=== PATIENT | male | born 1990 | race Caucasian/White ===

== ENCOUNTER 2021-12-30 21:24 | Emergency (ER) | payer MEDICAID, SELFPAY ==
[2021-12-30 21:25] VITALS: BP 146/80; PULSE 83; RESP 14; TEMP 36.8; O2SAT 95; BMI 27.3
--- NOTE | 2021-12-30 21:46 | EDS_ITS ---
HPI History of Present Illness Chief Complaint: General Illness Narrative Narrative: Patient presents with multiple somatic complaints, mainly viral syndrome type complaints that has had for the last 2 days. He states his symptoms began as a sore throat, with subjective fevers. He has an occasional cough. He also endorses myalgias/body aches. He states he has been taking Robitussin with mild relief of his sore throat which is improving. Today he experienced nausea and vomiting. He states he feels weak, and tired. He did not receive any COVID immunizations. He states worst part of his illness is a sore throat and body aches along with fatigue. He denies any significant past medical history. No sick contacts. PFSH [facility] Home Medications NK 12/30/21 [History Last Taken Unknown] Allergy/AdvReac Type Severity Reaction Status Date / Time piperacillin [From Zosyn] AdvReac Rash Verified 12/30/21 21:25 tazobactam [From Zosyn] AdvReac Rash Verified 12/30/21 21:25 Surgical History History of appendectomy Social History Smoking Status: Current every day smoker tobacco type: cigarettes ROS ROS ED ROS Narrative Constitutional: Subjective fever, occasional chills. HEENT: Positive sore throat. No neck pain. No loss of vision. Nasal congestion alternating with rhinorrhea. Cardiovascular: No chest pain. No palpitations. No pedal edema. Respiratory: Occasional cough, no shortness of breath. Abdominal: No abdominal pain. No nausea. No vomiting. Genitourinary: No dysuria. No hematuria. Musculoskeletal: Positive, diffuse myalgias. No arthralgias. Neurologic: No headaches. No dizziness. No lightheadedness. Skin: No rash. No change in color. Psychiatric: No depression. No anxiety. EXAM Physical Exam Narrative Exam Narrative: Afebrile. Vital signs noted. HEENT: Normocephalic. Atraumatic. PERRL, EOMI. Neck soft and supple. No point tenderness or step off. Positive nasal congestion. Airway patent. No drooling or trismus. Mild pharyngeal erythema. No tonsillar exudate. No meningismus. Cardiovascular: Regular rate and rhythm. No murmurs, rubs, or gallops appreciated. Respiratory: No tachypnea. Lungs clear to auscultation bilaterally. Gastrointestinal: Abdomen soft, nontender, with normoactive bowel sounds. No rebound or guarding. Neurological: Awake. Alert. Nonfocal, nonlateralizing. Skin: No rash. Normal color. No pallor. Musculoskeletal: No pedal edema. Full range of motion extremities. Const Vital Signs: 12/30/21 21:25 12/30/21 21:30 Temperature 98.2 F Temperature Source Temporal Pulse Rate 83 Respiratory Rate 14 Respiratory Effort Normal Non-Labored Respiratory Pattern Normal Blood Pressure 146/80 H Blood Pressure Mean 102 Pulse Ox 95 Oxygen Delivery Method Room Air MDM MDM MDM Narrative Medical decision making narrative: Patient was swabbed for Covid and influenza. He is negative for both. At this point in time, the treatment will be symptomatic. He will take [id number] medications as needed. I do not feel antibiotics are indicated. I asked him if he wanted anything for nausea and he declined. I also asked him if he needs note for work tomorrow and he also declined. I feel he can be discharged safely home with follow-up. Return instructions to the emergency department were reviewed. Disposition is discharged home in stable condition. Lab Data Attestation: I reviewed the patient's lab results. Discharge Plan Triage Chief Complaint: General Illness ED Provider: Kelvin Tom Dx/Rx/DC Orders Clinical Impression: URI (upper respiratory infection), Viral syndrome Instructions: ED Viral Syndrome (Adult), ED URI, Viral, No Abx (Adult) Prescriptions: No Action NK RF: 0 Primary Care Provider: Care Physician,No Primary Referrals: Baylee Wise DO [STAFF PHYSICIAN] - As Needed Care Physician,No Primary [Primary Care Provider] - Disposition Disposition: Home, Self Care
[2021-12-30 23:01] VITALS: RESP 16
== END 2021-12-30 23:01 | disposition home or self-care (01) ==
PROVIDERS: Emergency Provider Emergency Medicine; Visit Provider Emergency Medicine
DX: J06.9 Acute upper respiratory infection, unspecified (principal); B34.9 Viral infection, unspecified; F17.210 Nicotine dependence, cigarettes, uncomplicated
CPT/HCPCS: 87428; 99283

== ENCOUNTER 2022-01-18 16:07 | Emergency (ER) | payer MEDICAID, SELFPAY ==
[2022-01-18 16:08] VITALS: BP 137/84; PULSE 80; RESP 15; TEMP 36.5; O2SAT 97; BMI 27.6
--- NOTE | 2022-01-18 16:16 | RAD_ITS ---
STUDY: XR Elbow Min 3 Views REASON FOR EXAM: Male, 31 years old. PAIN TECHNIQUE: XR Elbow Min 3 Views LEFT COMPARISON: None. FINDINGS: Normal visualized humerus, radius and ulna. Normal radiocapitellar and ulnotrochlear articulations. Anterior humeral line and radiocapitellar line are preserved. The soft tissue structures are unremarkable. RAD/Elbow min 3 Views IMPRESSION: There are no acute findings. Electronically Signed: Luis Marquez MD at 16:34 EDT ,
--- NOTE | 2022-01-18 16:16 | EX.ED.UPPERE ---
HPI History of Present Illness Chief Complaint: Upper Extremity Injury Informant: patient Narrative Narrative: Patient presents with left elbow pain. Earlier today he fell off the back of a truck and landed on the ground. He hit his elbow on gravel. He had an immediate pain at the elbow that shot down his arm distally. But then it seemed to be better when he got up. However he notes that every time he even touches the elbow slightly he gets pain that shoots down his arm. His range of motion is still good. This is his left arm and he is right-hand dominant. He denies any other injuries or areas of pain. On exam and review of systems I find that he has a slightly inflamed recent tattoo of the left hand. This has antibiotic ointment has been placed on it and is improving. This was not part of the injury today. PFSH PFSH Home Medications naproxen [Naprosyn] 500 mg PO BID PRN #20 tab 01/18/22 [Rx Last Taken Unknown] Allergy/AdvReac Type Severity Reaction Status Date / Time piperacillin [From Zosyn] AdvReac Rash Verified 01/18/22 16:10 tazobactam [From Zosyn] AdvReac Rash Verified 01/18/22 16:10 Surgical History History of appendectomy Social History Smoking Status: Current every day smoker tobacco type: cigarettes ROS ROS ED Constitutional Constitutional ED: Denies chills or fever(s) Cardiovascular Cardiovascular: Denies chest pain Respiratory/Chest Respiratory/Chest: Denies dyspnea Gastrointestinal Gastrointestinal: Denies nausea or vomiting Musculoskeletal Musculoskeletal: Reports other Details: Left elbow pain as in history of present illness. ; Denies neck pain Integumentary Reports other Details: Healing tattoo infection dorsum of left hand. ; Denies abscess or Abrasions Neurologic Neurologic: Reports other Details: Patient does not have routine paresthesias. However, if he bumps his elbow at all it does shoot pain down his arm. ; Denies paresthesias or weakness Hematologic/Lymphatic Hematologic/Lymphatic: Denies easy bleeding or easy bruising EXAM Physical Exam Const Vital Signs: 01/18/22 16:08 Temperature 97.7 F L Temperature Source Temporal Pulse Rate 80 Respiratory Rate 15 Blood Pressure 137/84 H Blood Pressure Mean 101 Pulse Ox 97 Oxygen Delivery Method Room Air Positive well nourished and well developed General Appearance ED: well developed and NAD HEENT normocephalic and atraumatic Neck supple Resp normal respiratory effort Extremity normal to inspection and full ROM Extremity Narrative: I see no contusion or abrasion on the left arm or elbow area. There is no effusion. Extension flexion and supination pronation is all intact. He does have some tenderness both at the olecranon and proximal radius. He does have some hyperesthesia with tapping on the ulnar nerve. There is no distal arm tenderness or proximal arm tenderness. He does have a slightly inflamed tattoo on the dorsum of the left hand but it does not look acutely infected. He states it is improving. Neuro no sensory deficits noted Sensorium / Orientation: alert Sensory Exam: No sensory level loss detected Motor Exam: strength 5/5 throughout Skin Skin Narrative: Tattoo changes as above. No other abrasions lacerations or contusions at this time MDM MDM MDM Narrative Medical decision making narrative: 3 view of the left elbow looked at by me shows no sign of acute fracture or dislocation. Olecranon and radial head both look normal. There is a very small anterior fat pad. Patient will be prescribed Naprosyn. I will not put the arm in a sling as I think this might promote more stiffness than benefit. He can use ice and rest. Discharge Plan Triage Chief Complaint: Upper Extremity Injury ED Provider: Onel Schwartz Dx/Rx/DC Orders Clinical Impression: Fall from slipping, Contusion of elbow, left Instructions: ED Contusion, Upper Extremity Prescriptions: New naproxen [Naprosyn] 500 mg tablet 500 mg PO BID PRN (Reason: pain) Qty: 20 RF: 0 Primary Care Provider: Care Physician,No Primary Referrals: Eliseo Rao MD [STAFF PHYSICIAN] - 3-5 Days if not improving Care Physician,No Primary [Primary Care Provider] - Disposition Disposition: Home, Self Care
[2022-01-18] MEDS: Naproxen 250 MG Tablet 500 MG PO (17:08)
== END 2022-01-18 17:10 | disposition home or self-care (01) ==
LOC: ED 16:44
PROVIDERS: Emergency Provider Emergency Medicine; Visit Provider Emergency Medicine
DX: S50.02XA Contusion of left elbow, initial encounter (principal); W01.198A Fall on same level from slipping, tripping and stumbling with subsequent striking against other object, initial encounter; Y92.812 Truck as the place of occurrence of the external cause; F17.210 Nicotine dependence, cigarettes, uncomplicated
CPT/HCPCS: 73080; 99283

== ENCOUNTER 2022-04-08 00:45 | Emergency (ER) | payer MEDICAID, SELFPAY ==
[2022-04-08 00:46] VITALS: BP 150/86; PULSE 77; RESP 16; TEMP 36.3; O2SAT 99; BMI 28.3
--- NOTE | 2022-04-08 00:55 | RAD_ITS ---
STUDY: TOES OF THE RIGHT FOOT OF 0057 HOURS ON 04/08/2022 REASON FOR EXAM: 31-year-old male with trauma to toes of right foot. TECHNIQUE: 3 view(s) of the toe were obtained. COMPARISON: None. FINDINGS: There are no fractures or dislocations. There are no arthritic or degenerative changes. The joint spaces have a normal appearance. There are mild hammertoe deformities of the second through fifth toes. The surrounding soft tissues are normal. RAD/Toe(s) Min 2 Views IMPRESSION: 1. Normal examination right toes. 2. No fractures or dislocations. 3. No arthritic or degenerative changes. Normal joint spaces. 4. Mild hammertoe deformities second through fifth toes. 5. Normal surrounding soft tissues. Electronically Signed: Declan Seaman MD at 1:52 EDT ,
--- NOTE | 2022-04-08 01:24 | ED.VIS.LOWEX ---
HPI History of Present Illness Chief Complaint: Lower Extremity Injury Informant: patient Narrative Narrative: Patient presenting with great toe pain. Patient had a pair of slides on jumped off a lawn more and his backpack was caught on the lawn more he spun and kicked something. He notes pain at the base of the great toe. Denies any other injuries PFSH PFSH no medical history Home Medications hydrocodone-acetaminophen 5-325mg 5mg-325mg 1 tab PO Q6H PRN PRN Pain 3 days #10 TABLETS 04/08/22 [Rx Last Taken Unknown] Allergy/AdvReac Type Severity Reaction Status Date / Time piperacillin [From Zosyn] AdvReac Rash Verified 04/08/22 00:46 tazobactam [From Zosyn] AdvReac Rash Verified 04/08/22 00:46 Surgical History History of appendectomy Social History (Updated 04/08/22 @ 01:[address] Nikko Vieira DO) current gender identity: male Smoking Status: Current every day smoker tobacco type: cigarettes substance use type: does not use ROS ROS ED Constitutional Constitutional ED: Denies chills or weight loss Eyes Eyes: Denies change in vision or diplopia ENT ENT ED: Denies ear pain, rhinorrhea or sore throat Cardiovascular Cardiovascular: Denies chest pain, orthopnea, palpitations or racing heartbeat Respiratory/Chest Respiratory/Chest: Denies cough, dyspnea or orthopnea Gastrointestinal Gastrointestinal: Denies abdominal pain, diarrhea, nausea or vomiting Genitourinary Genitourinary ED: Denies dysuria, hematuria or urinary frequency Musculoskeletal Musculoskeletal: Reports other Details: See history of present illness ; Denies arthralgias or myalgias Integumentary Denies abscess or rash Neurologic Neurologic: Denies headache(s) or weakness Psychiatric Psychiatric: Denies anxiety, depression, suicidal ideation or suicidal thoughts Endocrine Endocrinology: Denies polydipsia, polyphagia or polyuria Allergic/Immunologic Allergic/Immunologic ED: Denies mouth swelling, tongue swelling or urticaria EXAM Physical Exam Const Vital Signs: 04/08/22 00:46 Temperature 97.3 F L Temperature Source Temporal Pulse Rate 77 Respiratory Rate 16 Blood Pressure 150/86 H Blood Pressure Mean 107 Pulse Ox 99 Oxygen Delivery Method Room Air Positive well nourished and well developed General Appearance ED: well developed HEENT Reports normocephalic, head/scalp atraumatic and moist mucous membranes Eyes PERRL and EOMs intact bilaterally Neck no lymphadenopathy, supple and no JVD Resp normal respiratory effort and clear to auscultation bilaterally Cardio regular rate, regular rhythm and no murmurs GI normal to inspection, nondistended, normoactive bowel sounds and non-tender Palpation: soft Back/Spine no CVA tenderness and normal ROM Extremity Extremity Narrative: Tender palpation over the medial aspect at the MTP joint of the right great toe General Extremety ED: Negative for edema General Extremity: Negative for edema Neuro oriented x3 and CN's II-XII intact bilaterally Sensorium / Orientation: alert Motor Exam: strength 5/5 throughout Psych mental status grossly normal Mood & Affect: Negative for depressed or tearful Skin no rashes or lesions noted and no wounds MDM MDM MDM Narrative Medical decision making narrative: My interpretation of the plain films of the great toe is no acute fracture. Patient be placed in a postoperative shoe. He can have pain medication rest and ice. Return if worsening or concerns Discharge Plan Triage Chief Complaint: Lower Extremity Injury ED Provider: Nikko Vieira Dx/Rx/DC Orders Clinical Impression: Contusion of toe Instructions: ED Foot Contusion Prescriptions: New hydrocodone-acetaminophen [hydrocodone-acetaminophen] 5-325 mg tablet 1 tab PO Q6H PRN PRN (Reason: Pain) 3 Days Qty: 10 0RF Primary Care Provider: Care Physician,No Primary Referrals: Care Physician,No Primary [Primary Care Provider] - Disposition Disposition: Home, Self Care
[2022-04-08] MEDS: HYDROcodone Bitartrate/Apap 5/325 Tablet PO (01:25)
== END 2022-04-08 01:28 | disposition home or self-care (01) ==
PROVIDERS: Emergency Provider Emergency Medicine; Visit Provider Emergency Medicine
DX: S90.111A Contusion of right great toe without damage to nail, initial encounter (principal); W22.09XA Striking against other stationary object, initial encounter; Y93.89 Activity, other specified; F17.210 Nicotine dependence, cigarettes, uncomplicated
CPT/HCPCS: 73660; 99283

== ENCOUNTER 2022-06-10 22:13 | Emergency (ER) | payer MEDICAID, SELFPAY ==
[2022-06-10 22:13] VITALS: BP 150/89; PULSE 96; RESP 16; TEMP 36.6; O2SAT 100; BMI 29.1
--- NOTE | 2022-06-10 23:19 | EX.ED.VIS.UR ---
HPI HPI - URI History of Present Illness Chief Complaint: Ear Problem Informant: patient Onset/Context/Timing Onset: Today Context: Gradual Onset Timing: Continuous Quality: ache Location: L ear Current Severity: Moderate Maximum Severity: Moderate Worsened by: - (nothing) Narrative Narrative: Patient states he had a sore throat yesterday but gone today, then he got out of the shower and his left ear was clogged like it needed to pop, as well as his right but when he held his nose and blew positive pressure to the right one opened up and is fine and the left one is still really uncomfortable. He denies any fevers, chills, systemic symptoms. No cough. ROS ROS ED Constitutional Constitutional ED: Denies chills or fever(s) ENT ENT ED: Reports ear pain left; Denies rhinorrhea or sore throat Cardiovascular Cardiovascular: Denies chest pain or palpitations Respiratory/Chest Respiratory/Chest: Denies cough or dyspnea Gastrointestinal Gastrointestinal: Denies abdominal pain, diarrhea, nausea or vomiting Genitourinary Genitourinary ED: Denies dysuria or hematuria Musculoskeletal Musculoskeletal: Denies myalgias or neck pain Integumentary Denies abscess or rash Neurologic Neurologic: Denies headache(s), paresthesias or weakness Psychiatric Psychiatric: Denies depression or suicidal thoughts Endocrine Endocrinology: Denies polydipsia or polyuria PFSH PFSH Medical History no medical history no medical history Home Medications hydrocodone-acetaminophen 5-325mg 5mg-325mg 1 tab PO Q6H PRN PRN Pain 3 days #10 TABLETS 04/08/22 [Rx Last Taken Unknown] azithromycin 250 mg tablet 250 mg PO QHS #4 TABLETS 06/10/22 [Rx Last Taken Unknown] Allergy/AdvReac Type Severity Reaction Status Date / Time piperacillin [From Zosyn] AdvReac Rash Verified 06/10/22 22:13 tazobactam [From Zosyn] AdvReac Rash Verified 06/10/22 22:13 Surgical History (Updated 06/10/22 @ 23:[address] Harry Tabares MD) History of appendectomy Hx of tympanostomy tubes Social History Smoking Status: Current every day smoker tobacco type: cigarettes substance use type: does not use EXAM Physical Exam Const Vital Signs: 06/10/22 22:13 Temperature 97.8 F Temperature Source Temporal Pulse Rate 96 Respiratory Rate 16 Blood Pressure 150/89 H Blood Pressure Mean 109 Pulse Ox 100 Oxygen Delivery Method Room Air Positive well nourished and well developed General Appearance ED: well developed and NAD HEENT Reports moist mucous membranes HEENT Narrative: Right TM and EAC normal. Left EAC unremarkable, no edema or pain, however the left TM is erythematous with bulging and dulled light reflex consistent with infection. normocephalic and atraumatic Throat: Negative for posterior oropharynx abnormal Eyes PERRL and EOMs intact bilaterally Neck no lymphadenopathy, supple and no meningeal signs Resp normal respiratory effort Extremity normal to inspection and full ROM Neuro oriented x3, CN's II-XII intact bilaterally and no sensory deficits noted Psych mental status grossly normal Skin Lesions: no lesions Rashes: no rashes MDM MDM MDM Narrative Medical decision making narrative: Consistent with acute otitis media. Patient advised with regards to decongestants which he can do as well, tonight he was given Naprosyn and azithromycin since he declared an allergy to Zosyn in the past. Discharge Plan Triage Chief Complaint: Ear Problem ED Provider: Harry Tabares Dx/Rx/DC Orders Clinical Impression: Acute left otitis media Instructions: ED Otitis Media Antibiotic ... Prescriptions: New azithromycin [azithromycin] 250 mg tablet 250 mg PO QHS Qty: 4 0RF Rx Instructions: start 06/11 No Action hydrocodone-acetaminophen [hydrocodone-acetaminophen] 5-325 mg tablet 1 tab PO Q6H PRN PRN (Reason: Pain) 3 Days Qty: 10 0RF Primary Care Provider: Care Physician,No Primary Referrals: Doctor,Your [Non-Staff] - 3-5 Days if not improving Disposition Disposition: Home, Self Care
[2022-06-10] MEDS: Azithromycin 250 MG Tablet 500 MG PO (23:29)
[2022-06-10] MEDS: Naproxen 250 MG Tablet 500 MG PO (23:29)
[2022-06-10 23:31] VITALS: RESP 18
== END 2022-06-10 23:32 | disposition home or self-care (01) ==
PROVIDERS: Emergency Provider Emergency Medicine; Visit Provider Emergency Medicine
DX: H66.92 Otitis media, unspecified, left ear (principal); F17.210 Nicotine dependence, cigarettes, uncomplicated
CPT/HCPCS: 99283

== ENCOUNTER 2022-06-14 02:46 | Emergency (ER) | payer MEDICAID, SELFPAY ==
[2022-06-14 02:47] VITALS: BP 170/118; PULSE 92; RESP 16; TEMP 36; O2SAT 98; BMI 29.1
--- NOTE | 2022-06-14 04:02 | EX.ED.UPPERE ---
HPI History of Present Illness HPI Narrative: Patient presents with bilateral hand lacerations that occurred today. Patient states he cut them on broken glass. Patient states he attempted to push the window open when it broke. Patient is unsure of his last tetanus. Patient describes his pain as dull. Patient states nothing makes it better nothing makes it worse. Patient admits to some numbness and tingling in his left index finger. Patient denies any weakness. Patient denies any other injuries. Chief Complaint: Laceration Occured/Mechanism Comment: Cut on broken glass Onset/Context/Timing Context: Sudden Onset Timing: Continuous Worsened by: Nothing Relieved by: Nothing Associated Symptoms Associated Symptoms: Positive for Parasthesia; Negative for Weakness or Loss of Funtion Narrative Tetanus Immunization: Unknown PFSH PFSH Medical History no medical history no medical history Allergy/AdvReac Type Severity Reaction Status Date / Time piperacillin [From Zosyn] AdvReac Rash Verified 06/14/22 02:49 tazobactam [From Zosyn] AdvReac Rash Verified 06/14/22 02:49 Surgical History History of appendectomy Hx of tympanostomy tubes no surgical history Social History Smoking Status: Current every day smoker tobacco type: cigarettes substance use type: does not use ROS ROS ED Constitutional Constitutional ED: Denies chills or fever(s) Eyes Eyes: Denies blurry vision or change in vision ENT ENT ED: Denies rhinorrhea or sore throat Cardiovascular Cardiovascular: Denies chest pain or palpitations Respiratory/Chest Respiratory/Chest: Denies cough or dyspnea Gastrointestinal Gastrointestinal: Denies nausea or vomiting Genitourinary Genitourinary ED: Denies dysuria or hematuria Musculoskeletal Musculoskeletal: Denies back pain or neck pain Integumentary Denies abscess or rash Neurologic Neurologic: Reports paresthesias LUE; Denies headache(s) or weakness Allergic/Immunologic Allergic/Immunologic ED: Denies mouth swelling or urticaria EXAM Physical Exam Const Vital Signs: 06/14/22 02:47 Temperature 96.8 F L Temperature Source Temporal Pulse Rate 92 Respiratory Rate 16 Blood Pressure 170/118 H Blood Pressure Mean 135 Pulse Ox 98 Oxygen Delivery Method Room Air Positive well nourished and well developed General Appearance ED: well developed and NAD HEENT Reports moist mucous membranes Neck full ROM and supple Extremity Extremity Narrative: There is a 2 cm linear laceration over the tip of the distal phalanx of the left index finger. There is minimal gapping of the wound margins. There is no active bleeding. There is tenderness over the distal phalanx. There are no foreign bodies visualized. There is a superficial laceration over the pad of the left middle finger. There is no bleeding. There are no foreign bodies visualized. There is a superficial laceration over the dorsal aspect of the left thumb over the IP joint. There is no gapping of the wound margins. There is no bleeding. There are no foreign bodies visualized. There is a 1 cm full-thickness linear laceration over the ulnar aspect of the middle phalanx of the right index finger. There is mild gapping of the wound margins. There are no foreign bodies visualized. Sensation was intact to light touch in all digits. Capillary refill was less than 2 seconds in all digits. Strength is 5/5 in flexion extension of the MP, PIP, and DIP joint of all the digits. Neuro oriented x3, CN's II-XII intact bilaterally, moves all extremities, no focal motor deficits and no sensory deficits noted Sensorium / Orientation: alert Motor Exam: strength 5/5 throughout Psych mental status grossly normal MDM MDM MDM Narrative Medical decision making narrative: Patient was given a tetanus booster. X-rays of the left index finger were obtained. There are 3 views. On my interpretation, there is no acute fracture or dislocation. There is no radiopaque foreign body. Radiologist also interpreted the x-rays and agrees. X-rays of the right hand were obtained. There are 3 views. On my interpretation, there is no acute fracture or dislocation. There is no radiopaque foreign body. Radiologist also interpreted the x-rays and agrees. Patient was advised of his findings. The wounds were cleaned and closed with Dermabond skin adhesive. Patient tolerated the procedure well. Patient was instructed to avoid bacitracin, Neosporin, triple antibiotic, or Vaseline-based ointments. Patient was instructed to follow-up with his primary care physician in 5 to 7 days. Patient understood and was agreeable with the plan. All questions were answered. Procedures Lacerations Right index finger: Length: 1 cm Depth: Skin Shape: Linear Prep: Sterile Conditions and Chlorhexadine Laceration repair: Dermabond Left index finger: Length: 2 cm Depth: Skin Shape: Linear Prep: Sterile Conditions and Chlorhexadine Laceration repair: Dermabond Discharge Plan Triage Chief Complaint: Laceration ED Provider: Marshall Fabian Dx/Rx/DC Orders Clinical Impression: Laceration of right index finger, Laceration of left index finger Instructions: ED Laceration, Hand: All Closures Primary Care Provider: Care Physician,No Primary Referrals: Nina Castillo MD [Med Staff - Mental Health Director] - 5-7 Days Care Physician,No Primary [Primary Care Provider] - Disposition Disposition: Home, Self Care
--- NOTE | 2022-06-14 04:06 | RAD_ITS ---
INDICATION: Injury/Pain EXAMINATION/TECHNIQUE: X-RAY - LEFT XR Hand Min 3 Views 3 VIEWS COMPARISON: None. FINDINGS: SOFT TISSUES: Cutaneous defect involving the distal aspect of the second digit. Otherwise, no soft tissue swelling or gas. No radiopaque foreign body. BONES/JOINTS: No acute fracture or subluxation.. Normal alignment. Preservation of the joint space.. No sclerotic or destructive changes observed. RAD/Hand Min 3 Views IMPRESSION: No acute fracture or dislocation. Electronically Signed: Nik Marino MD at 4:46 EDT ,
[2022-06-14] MEDS: Diphth,Pertuss(Acell),Tet Vac 0.5 ML Vial IM (04:26)
--- NOTE | 2022-06-14 04:27 | RAD_ITS ---
STUDY: X-RAY - LEFT HAND, ATTENTION INDEX FINGER REASON FOR EXAM: Male, 31 years old patient with index finger pain after injury. TECHNIQUE: 3 view(s) of the finger were obtained. COMPARISON: Prior comparison studies are not available for review at this time. FINDINGS: Normal metacarpal head. Normal metacarpophalangeal joint. Normal proximal phalanx. Normal middle phalanx. Normal distal phalanx. Normal proximal interphalangeal joint. Normal distal interphalangeal joint. There is no demonstrated fracture. There is mild soft tissue swelling. RAD/Finger(s) Min 2 Views IMPRESSION: No radiographic evidence for acute fracture. If there is still clinical concern for acute fracture, follow-up radiographs in 7-10 days maybe helpful in evaluating a healing radiographically occult fracture. Electronically Signed: Ashlyn Pfeiffer MD at 4:45 EDT ,
[2022-06-14 05:08] VITALS: BP 144/68; PULSE 84; RESP 17; O2SAT 97
== END 2022-06-14 05:08 | disposition home or self-care (01) ==
PROVIDERS: Emergency Provider Emergency Medicine; Visit Provider Emergency Medicine
DX: S61.210A Laceration without foreign body of right index finger without damage to nail, initial encounter (principal); S61.211A Laceration without foreign body of left index finger without damage to nail, initial encounter; F17.210 Nicotine dependence, cigarettes, uncomplicated; W25.XXXA Contact with sharp glass, initial encounter; Z23 Encounter for immunization
CPT/HCPCS: 12001; 73130; 73140; 90471; 90715

== ENCOUNTER 2022-06-14 11:30 | Emergency (ER) | payer MEDICAID, SELFPAY ==
[2022-06-14 11:31] VITALS: BP 127/84; PULSE 83; RESP 16; TEMP 36.8; O2SAT 97; BMI 29.1
--- NOTE | 2022-06-14 11:43 | EX.ED.UPPERE ---
HPI History of Present Illness Chief Complaint: Laceration Informant: patient Onset/Context/Timing Onset: Yesterday Context: Sudden Onset Timing: Continuous Quality of Pain: - (sore) Location: Multiple fingers Current Severity: Mild Maximum Severity: Mild Worsened by: Palpation Relieved by: Leaving alone, bandage Associated Symptoms Associated Symptoms: Negative for Parasthesia, Weakness or Loss of Funtion Narrative Narrative: Patient accidentally injured his fingers last night on a broken glass, he was seen here in the emergency department and had multiple lacerations repaired with skin glue, he states the one on his right index finger has been bleeding and when he took the bandage off, all of the glue came off with it. He presents for reevaluation, and would like it sutured. PFSH PFSH Medical History no medical history no medical history Allergy/AdvReac Type Severity Reaction Status Date / Time piperacillin [From Zosyn] AdvReac Rash Verified 06/14/22 11:34 tazobactam [From Zosyn] AdvReac Rash Verified 06/14/22 11:34 Surgical History History of appendectomy Hx of tympanostomy tubes Social History Smoking Status: Current every day smoker tobacco type: cigarettes substance use type: does not use ROS ROS ED Constitutional Constitutional ED: Denies chills or fever(s) Musculoskeletal Musculoskeletal: Reports extremity pain; Denies neck pain Integumentary Reports wounds; Denies Abrasions or rash Neurologic Neurologic: Denies paresthesias or weakness EXAM Physical Exam Const Vital Signs: 06/14/22 11:31 Temperature 98.2 F Temperature Source Oral Pulse Rate 83 Respiratory Rate 16 Blood Pressure 127/84 H Blood Pressure Mean 98 Pulse Ox 97 Oxygen Delivery Method Room Air Positive well nourished and well developed General Appearance ED: well developed and NAD Neck full ROM and supple Back/Spine normal ROM and normal to inspection Extremity full ROM Extremity Narrative: 1 cm laceration to the radial aspect of the right index finger middle phalanx, full-thickness irregular subcutaneous, no active bleeding, clean-appearing. Skin glue completely came off on the bandage that the patient removed. There is a left fingertip laceration with glue intact except at the nail which is barely oozing blood no signs of infection. No nail injury no nailbed injuries. Neuro oriented x3, no focal motor deficits and no sensory deficits noted Sensorium / Orientation: alert Psych mental status grossly normal and thought process normal Skin no wounds Rashes: no rashes MDM MDM MDM Narrative Medical decision making narrative: This is a small laceration and it is full-thickness, and I think it would be reasonable to continue using bandages and dressing changes and let heal by secondary intent, or 2 primarily repaired with sutures, the patient prefers the latter so he was anesthetized topically with let first, followed by repair see the procedure note. Procedures Lacerations R index finger: Length: 1 cm Depth: Sub Q Shape: irreg Prep: Sterile Conditions and Chlorhexadine Laceration repair: Irrigated, Lidocaine (1cc), Lidocaine with epi (local topical LET), Local and Skin sutures Irrigated (ml): 60 Number of Sutures/[place]: 2 Suture Information: Ethilon, Simple and 5-0 Discharge Plan Triage Chief Complaint: Laceration ED Provider: Harry Tabares Dx/Rx/DC Orders Clinical Impression: Laceration of right index finger Instructions: ED Laceration, Hand: All Closures Primary Care Provider: Care Physician,No Primary Referrals: Care Physician,No Primary [Primary Care Provider] - Doctor,Your [Non-Staff] - 7 Days for suture removal (or urgent care or ER) Disposition Disposition: Home, Self Care
[2022-06-14] MEDS: Lidocaine/Epi/Tetracaine 50 ML 1 APPLIC TOPICAL (11:47)
[2022-06-14 13:13] VITALS: PULSE 88; RESP 18; O2SAT 99
== END 2022-06-14 13:17 | disposition home or self-care (01) ==
PROVIDERS: Emergency Provider Emergency Medicine; Visit Provider Emergency Medicine
DX: S61.210A Laceration without foreign body of right index finger without damage to nail, initial encounter (principal); S61.211A Laceration without foreign body of left index finger without damage to nail, initial encounter; W25.XXXA Contact with sharp glass, initial encounter; F17.210 Nicotine dependence, cigarettes, uncomplicated; Z23 Encounter for immunization
CPT/HCPCS: 12001; 73130; 73140; 90471; 90715; 99282; 99283

== ENCOUNTER 2023-11-26 14:46 | Emergency (ER) | payer MEDICAID, SELFPAY ==
[2023-11-26 14:47] VITALS: BP 134/83; PULSE 66; RESP 18; TEMP 36.4; O2SAT 99; BMI 28.8
--- OUTSIDE RECORDS SUMMARY | 2023-11-26 16:05 | XMS RPT_ITS | CCD ---
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 ENROLLED IN A CHEMICAL DEPENDENCY/SUBSTANCEABUSE PROGRAM, SOME INFORMATION MAY BE OMITTED. This clinical summary was aggregated from multiple sources. Caution should be exercised in using it in the provision of clinical care. This summary normalizes information from multiple sources, and as a consequence, information in this document may materially change the coding, format and clinical context of patient data. In addition, data may be omitted in some cases. CLINICAL DECISIONS SHOULD BE BASED ON THE PRIMARY CLINICAL RECORDS. [employer] provides no warranty or guarantee of the accuracy or completeness of information in this document.
--- NOTE | 2023-12-10 10:16 | EDS_ITS ---
HPI History of Present Illness Chief Complaint: Other, Pain/Inj PFSH PFSH Allergy/AdvReac Type Severity Reaction Status Date / Time piperacillin [From Zosyn] AdvReac Rash Verified 11/26/23 14:47 tazobactam [From Zosyn] AdvReac Rash Verified 11/26/23 14:47 Surgical History History of appendectomy Hx of tympanostomy tubes Social History Smoking Status: Current every day smoker tobacco type: cigarettes substance use type: does not use MDM MDM MDM Narrative Medical decision making narrative: HISTORY OF PRESENT ILLNESS: 33-year-old male presents with nasal pain bruising and swelling after hitting his nose on a door frame. Thinks his nose may be broken. Denies loss of consciousness. He is on a blood thinner. Denies any nose bleeding. REVIEW OF SYSTEMS: Pertinent positives: Nasal pain Pertinent negatives: Loss of consciousness, loss sensation, slurred speech, facial drooping, neck pain, chest pain, abdominal pain PHYSICAL EXAM: Nursing triage notes reviewed, Vital signs reviewed Constitutional: please see mdm HENT: MMM Eye primary Survey Airway: Intact Breathing: Bilateral breath sounds Circulation: Palpable bilateral femorals, Palpable bilateral radial, Palpable bilateral DP and Palpable bilateral PT Disability / Spine precautions GCS Score: Eye Openin Verbal Response: 5 Motor Response: 6 Secondary Survey Constitutional: Please see MDM Head: Atraumatic, Midface stable, NO jaw malocclusion, No Cephalohematoma, and No Lacerations noted Eye: Pupils equal round and reactive to light, Extraocular muscles intact and No periorbital ecchymosis or stepoff, no evidence of entrapment ENT: Oropharynx clear, no lacerations, no hemotympanum, no raccoon eyes or fong sign, nasal bone appears slightly misshapen with mild left-sided deviation Cervical spine / Neck: No cervical spine bony tenderness, crepitance, or stepoff deformity Trachea midline Lungs: Clear to auscultation, No asymmetric rise and No crepitus, no flail chest Cardiac: Regular rate and rhythm and No murmurs Abdomen: Soft, Nontender and No rebound Pelvis: Pelvis stable to compression : No evidence of genital injury Back: No midline bony tenderness to thoracic/lumbar/sacral spines Neuro: Alert and oriented x3, neuro exam at baseline, cranial nerves II through XII are intact. No pain with extraocular muscle movement. There is negative test of skew. 5 of 5 strength in upper and lower extremities in flexion extension. Intact sensation to light touch in upper and lower extremity dermatomes. No truncal or extremity ataxia. No dysdiadochokinesia. Normal gait. 2+ reflexes in upper and lower extremities. No meningeal signs. Negative Babinski. NIH of 0. Extremities: NO gross Deformities Psych: Normal affect Nursing triage notes reviewed, Vital signs reviewed MEDICAL DECISION MAKING: Chief Complaint: Nasal pain History obtained from others: Significant other Consults: none MDM Narrative: The patient was hemodynamically stable, afebrile, nontoxic-appearing. Primary secondary trauma surveys concerning for nasal bone fracture. There is no evidence of nasal hematoma. Patient is not a candidate for advanced imaging of the head at this time given low risk factor profile, young age lack of loss of consciousness vomiting or focal neurologic deficit. Patient was given outpatient ENT follow-up. The patient and/or family, caregivers express understanding. The patient and/or family, caregivers agrees with the plan. Shared decision making: I will have a discussion with the patient and or visitors regarding risk/benefits of further testing or admission. They will be made aware of of the risk/benefits inherent in this decision they will be given the opportunity to voice understanding. Total critical care time today provided was at least 0 [] minutes. This excludes separately billable procedures. Critical care time (if documented) is secondary to the patient having high probability of clinically significant/life threatening deterioration in the patient's condition which required my urgent intervention. Impression: 1. Acute closed nasal fracture Dispo: Discharge home This note was generated with [employer] dictation software. It may contain incorrect words, spelling, and punctuation that were not noted in review of the chart prior to signing. Discharge Plan Triage Chief Complaint: Other, Pain/Inj ED Provider: Owen Wakefield Dx/Rx/DC Orders Clinical Impression: Closed fracture nasal bone Instructions: ED Nose Injury Tx Primary Care Provider: Care Physician,No Primary Referrals: Jamey Avery MD [Med Staff - Active Staff] - Activity Restrictions/Additional Instructions: Thank you for trusting us with your care today! Please take Tylenol (2 pills, 650 mg), ibuprofen (2 pills, 400 mg) every 6 hours as needed for pain and fever control. Please return to the emergency department if your symptoms change or worsen. Please follow with your primary care physician for further outpatient evaluation and management. Disposition Disposition: Home, Self Care Discharge Date/Time: 11/26/23 16:31
== END 2023-11-26 16:31 | disposition home or self-care (01) ==
PROVIDERS: Emergency Provider Emergency Medicine; Visit Provider Emergency Medicine
DX: S02.2XXA Fracture of nasal bones, initial encounter for closed fracture (principal); W22.09XA Striking against other stationary object, initial encounter; F17.210 Nicotine dependence, cigarettes, uncomplicated
CPT/HCPCS: 99282

== ENCOUNTER 2023-12-20 08:20 | Emergency (ER) | payer MEDICAID, SELFPAY ==
[2023-12-20 08:22] VITALS: BP 138/87; PULSE 79; RESP 16; TEMP 35.8; O2SAT 98; BMI 28.7
--- NOTE | 2023-12-20 08:39 | EKG12_ITS ---
Test Reason : CP Blood Pressure : / mmHG Vent. Rate : 060 BPM Atrial Rate : 060 BPM P-R Int : 116 ms QRS Dur : 090 ms QT Int : 398 ms P-R-T Axes : 045 020 025 degrees QTc Int : 398 ms Normal sinus rhythm Early repolarization Normal ECG Confirmed by IGGY KC, DENILSON ([id number]), newspaper managing editor OFELIA CRAWFORD ([id number]) on 12/21/2023 6:23:47 AM Referred By: ANALIA Confirmed By:DENILSON PARKINSON MD
--- NOTE | 2023-12-20 08:40 | EDS_ITS ---
HPI History of Present Illness Chief Complaint: Chest Pain Detail of Chief Complaint: Chest pain and shortness of breath Informant: patient Narrative Narrative: Patient presents to the emergency department with complaint of chest discomfort and feeling short of breath. Patient states that approximately at 8 when he stopped at [employer] to get some food when he started feeling like everything was closing in as far as his chest became tight and felt like he could not breathe. He has never had symptoms like this before. He tells me he recently had nasal surgery 8 days ago and he was under general anesthesia for that. Patient has no heart history or significant medical problems. No prior history of PE or DVT. He does have anxiety but not clinically diagnosed and not on medication for this. He has been under increased stress of late and that he just lost his job yesterday and is currently homeless. Patient denies any paresthesias. PFSH PFSH Home Medications lorazepam 1 mg tablet (Ativan) 1 mg PO TID PRN anxiety #10 tabs 12/20/23 [Rx Last Taken Unknown] Allergy/AdvReac Type Severity Reaction Status Date / Time piperacillin [From Zosyn] AdvReac Rash Verified 12/20/23 08:21 tazobactam [From Zosyn] AdvReac Rash Verified 12/20/23 08:21 Surgical History History of appendectomy Hx of tympanostomy tubes Social History Smoking Status: Current every day smoker tobacco type: cigarettes substance use type: does not use ROS ROS ED Review of Systems ROS Unobtainable: other Constitutional Constitutional ED: Reports lethargy; Denies chills, fever(s), sweats or weight loss Eyes Eyes: Denies blurry vision, change in vision or diplopia ENT ENT ED: Denies rhinorrhea or sore throat Cardiovascular Cardiovascular: Reports chest pain and racing heartbeat; Denies orthopnea Respiratory/Chest Respiratory/Chest: Reports dyspnea; Denies cough, dyspnea on exertion, orthopnea or sputum Gastrointestinal Gastrointestinal: Denies abdominal pain, diarrhea, nausea or vomiting Genitourinary Genitourinary ED: Denies dysuria, hematuria or urinary frequency Musculoskeletal Musculoskeletal: Denies arthralgias, back pain, myalgias or neck pain Integumentary Denies abscess, Abrasions or rash Neurologic Neurologic: Denies headache(s) or weakness Psychiatric Psychiatric: Denies anxiety, depression or suicidal thoughts Endocrine Endocrinology: Denies polydipsia, polyphagia or polyuria Hematologic/Lymphatic Hematologic/Lymphatic: Denies easy bleeding, easy bruising or lymphadenopathy Allergic/Immunologic Allergic/Immunologic ED: Denies mouth swelling, tongue swelling or urticaria EXAM Physical Exam Const Vital Signs: 12/20/23 08:22 12/20/23 09:24 12/20/23 10:08 Temperature 96.4 F L Temperature Source Temporal Pulse Rate 79 67 98 Respiratory Rate 16 12 13 Blood Pressure 138/87 H 132/82 H 127/91 H Blood Pressure Mean 104 98 103 Pulse Ox 98 97 98 Oxygen Delivery Method Room Air Room Air Room Air Positive well nourished and well developed General Appearance ED: well developed and NAD HEENT Reports TM's clear and moist mucous membranes normocephalic and atraumatic; Negative for trauma or tenderness Tympanic Membrane ED: Yes TM's clear Eyes PERRL and EOMs intact bilaterally General Eye ED: Negative for pale conjunctiva or scleral icterus Neck no lymphadenopathy, supple and no JVD General: Negative for tenderness Chest Wall inspection of chest normal and palpation of chest normal Chest: Negative for tenderness Resp normal respiratory effort and clear to auscultation bilaterally Effort and Inspection: Negative for respiratory distress or pain with movement Auscultation: Negative for rhonchi, wheezes or diminished lung sounds Cardio regular rate, regular rhythm, S1 normal heart sound, S2 normal heart sound and no murmurs Peripheral Pulses: pulses 2+ throughout GI normal to inspection, nondistended, normoactive bowel sounds, soft to palpation, non-tender, non-distended and no masses Back/Spine no CVA tenderness and no thoracic nor lumbar tenderness Extremity normal to inspection General Extremety ED: Negative for edema General Extremity: Negative for edema Neuro oriented x3, CN's II-XII intact bilaterally, no sensory deficits noted and gait normal Sensorium / Orientation: awake, alert, oriented to person, oriented to place and oriented to time Motor Exam: strength 5/5 throughout and strength abnormal Psych mental status grossly normal Skin no rashes or lesions noted and no wounds MDM MDM MDM Narrative Medical decision making narrative: Patient presents with chest pain sudden onset and shortness of breath. Increased stressors. No significant risk factors for heart disease or PE. Also describes some burning in his chest like heartburn. IV line established. EKG obtained arrival shows sinus rhythm with rate of 60 bpm with early repolarization otherwise no acute changes. CBC with differential was chest x- ray was unremarkable. Patient initially was given aspirin. He was given a milligram of Ativan. Obtained and showed a white blood cell count of 9.0 with hemoglobin 15.9 and platelet count of 247. Chemistries unremarkable. D-dimer was normal. Troponin was normal at 9. Patient did feel improved after Ativan and then was describing some heartburn symptoms I gave him a GI cocktail which she states helped a little bit. This point clinically he looks well I do not feel he is having acute coronary syndrome. Suspect more likely anxiety and possibly some GERD. Will write a prescription for few Ativan as needed for anxiety. Will refer to primary care physician on-call for no doc. Lab Data Attestation: I reviewed the patient's lab results. Labs: Laboratory Results - last 24 hr 12/20/23 09:15 WBC 9.0 RBC 5.17 Hgb 15.9 Hct 46.6 MCV 90.1 MCH 30.8 MCHC 34.1 RDW Std Deviation 42.6 RDW Coeff of Yousif 12.9 Plt Count 247 MPV 11.0 Immature Gran % (Auto) 1.900 H Neut % (Auto) 59.7 Lymph % (Auto) 21.5 Loving % (Auto) 9.2 Eos % (Auto) 7.0 H Baso % (Auto) 0.7 Absolute Neuts (auto) 5.4 Absolute Lymphs (auto) 1.94 Nucleated RBC % 0 D-Dimer Quant (PE/DVT) 0.39 Sodium 137 Potassium 4.5 Chloride 103 Carbon Dioxide 27.0 Anion Gap 7 BUN 15 Creatinine 0.92 Estim Creat Clear Calc 149.28 Est GFR (MDRD) Af Amer 122 Est GFR (MDRD) Non-Af 101 BUN/Creatinine Ratio 16.4 Glucose 113 H Calcium 9.2 Troponin I High Sens 9 Radiography Diagnostic Testing: Clinical Impression(s) from Imaging Studies Chest X-Ray 12/20/23 09:08 IMPRESSION: Normal x-ray examination of the chest. Electronically Signed: Matt Adams MD at 9:29 EDT , 1 view chest x-ray obtained interpreted by myself as no evidence of infiltrate or pneumothorax or acute disease process. Radiology in agreement. EKG Initial EKG: Attestation: I personally reviewed and interpreted this EKG as follows: Comments: Sinus rhythm with a ventricular rate of 60 bpm with early repolarization Discharge Plan Triage Chief Complaint: Chest Pain ED Provider: Mer Bolden Dx/Rx/DC Orders Clinical Impression: Anxiety, Hx of gastroesophageal reflux (GERD), Chest pain Instructions: ED Anxiety Reaction, ED Chest Pain, Uncertain Cause Prescriptions: New lorazepam [Ativan] 1 mg tablet 1 mg PO TID PRN (Reason: anxiety) Qty: 10 0RF Primary Care Provider: Care Physician,No Primary Referrals: Ra West MD [Med Staff - Active Staff] - 3-5 Days Care Physician,No Primary [Primary Care Provider] - Disposition Disposition: Home, Self Care
--- NOTE | 2023-12-20 08:44 | NURSING ---
NO OLD EKGS
--- NOTE | 2023-12-20 09:08 | RAD_ITS ---
STUDY: X-RAY CHEST REASON FOR EXAM: Male, 33 years old. Chest pain TECHNIQUE: Single AP portable view of the chest. COMPARISON: None. FINDINGS: EKG leads overlie the chest The lungs are clear and expanded. There is no demonstrated pleural abnormality. Normal size heart. Normal mediastinum and ron. Normal visualized pulmonary arteries. Normal visualized aortic arch and descending thoracic aorta. Normal visualized thoracic spine. Normal visualized ribs, clavicles, and shoulders. There is no demonstrated abnormality of the visualized soft tissue structures of the upper abdomen. RAD/Chest 1 View (Portable) IMPRESSION: Normal x-ray examination of the chest. Electronically Signed: Matt Adams MD at 9:29 EDT ,
[2023-12-20] MEDS: Lorazepam 2 MG/ML WCH Syringe 1 MG IV (09:19)
[2023-12-20] MEDS: Aspirin 81 MG TAB.CHEW 324 MG PO (09:19)
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
[2023-12-20] MEDS: 0.9% Normal Saline (1000mL) 1,000 ML 150 ML IV (09:21)
[2023-12-20 09:24] VITALS: BP 132/82; PULSE 67; RESP 12; O2SAT 97
[2023-12-20 09:36] LABS: Absolute Lymphocyte Count 1.94 X10^3/uL (0.83-4.51); Absolute Neutrophil Count 5.4 X10^3/uL (2.0-7.7); Basophil# 0.06 X10^3/uL; Basophil% 0.7 % (0-1); Eosinophil# 0.63 X10^3/uL; Hematocrit 46.6 % (40-54); Hemoglobin 15.9 g/dL (13.0-16.5); Lymphocyte # 1.94 X10^3/ul (0.83-4.51); Lymphocyte % 21.5 % (19-41); Mean Corp Hgb Conc 34.1 g/dL (32-36); Mean Corpuscular Hgb 30.8 pg (27.0-32.0); Mean Corpuscular Volume 90.1 fL (80-94); Monocyte# 0.83 X10^3/uL; Monocyte% 9.2 % (0-10); NRBC Flagged by Analyzer 0 % (0-5); Neutrophil # 5.38 X10^3/uL (2.7-7.7); Neutrophil % 59.7 % (47-70); Platelet Count 247 K/mm3 (150-450); RBC Distribution Width CV 12.9 % (11.6-14.6); RBC Distribution Width SD 42.6 fl (35.1-43.9); Red Blood Count 5.17 M/mm3 (4.6-6.2)
[2023-12-20 09:51] LABS: D-Dimer Quantitative (DVT/PE) 0.39 FEU/ug/m (0.27-0.49)
[2023-12-20 09:56] LABS: Anion Gap 7 (5-15); BUN 15 mg/dL (7-18); BUN/Creat Ratio 16.4 RATIO (10-20); Calcium,Total 9.2 mg/dL (8.5-10.1); Chloride 103 mmol/L (98-107); Creatinine, Serum 0.92 mg/dL (0.70-1.30); EST Glomerular Filtration Rate 101 mL/min (>60); Est Glom Filt Rate - Afr Amer 122 mL/min (>60); Estimated Creatinine Clearance 149.28 ml/min; Glucose 113 mg/dL (74-106); Potassium 4.5 mmol/L (3.5-5.1); Sodium Level 137 mmol/L (136-145); Troponin-I HS (w/2H Reflex) 9 pg/mL (3.0-78.0)
[2023-12-20 10:08] VITALS: BP 127/91; PULSE 98; RESP 13; O2SAT 98
[2023-12-20] MEDS: Mag Hydrox/Al Hydrox/Simeth 30 ML UDC PO (10:35)
[2023-12-20 11:05] VITALS: BP 102/62; PULSE 118; RESP 14; O2SAT 100
[2023-12-20 11:28] VITALS: BP 102/62; PULSE 63; RESP 15; TEMP 36.1; O2SAT 98
[2023-12-20 11:28] LABS: Reflex Troponin-HS? (from REC) Y
== END 2023-12-20 11:29 | disposition home or self-care (01) ==
PROVIDERS: Emergency Provider Emergency Medicine; Visit Provider Emergency Medicine
DX: F41.9 Anxiety disorder, unspecified (principal); K21.9 Gastro-esophageal reflux disease without esophagitis; R07.9 Chest pain, unspecified; F17.210 Nicotine dependence, cigarettes, uncomplicated; Z56.89 Other problems related to employment; Z59.00 Homelessness unspecified
CPT/HCPCS: 71045; 80048; 84484; 85025; 85379; 93005; 96361; 96374; 99284; J7030; A4216

== ENCOUNTER 2023-12-28 22:46 | Emergency (ER) | payer MEDICAID, SELFPAY ==
[2023-12-28 22:47] VITALS: BP 156/97; PULSE 70; RESP 16; TEMP 36.6; O2SAT 98; BMI 29.2
--- NOTE | 2023-12-28 23:04 | RAD_ITS ---
EXAM: XR CERVICAL SPINE, 2 OR 3 VIEWS CLINICAL INDICATION: BILATERAL HAND paresthesias TECHNIQUE: Frontal and lateral views of the cervical spine. COMPARISON: No relevant prior studies available. FINDINGS: VERTEBRAE: No significant abnormality. Preserved vertebral body height. No acute fracture. No spondylolisthesis. Preservation of the normal cervical lordosis. No significant facet arthropathy. DISC SPACES: No significant abnormality. Disc spaces are maintained. SOFT TISSUES: No significant abnormality. No prevertebral soft tissue widening. LUNG APICES: Clear. RAD/Cerv Spine 2 or 3 Views IMPRESSION: No evidence of acute fracture or spondylolisthesis. Electronically Signed: Donnell Moss DO at 23:53 EDT ,
--- NOTE | 2023-12-28 23:04 | RAD_ITS ---
EXAM: XR LUMBOSACRAL SPINE, 2 OR 3 VIEWS CLINICAL INDICATION: Bilateral thigh paresthesia TECHNIQUE: Frontal and lateral views of the lumbar spine and sacrum. COMPARISON: No relevant prior studies available. FINDINGS: VERTEBRAE: Mild lower lumbar facet arthrosis. No fracture, spondylolysis, or spondylolisthesis. SACRUM/COCCYX: Transitional anatomy at the lumbosacral junction with partial sacralization of L5. The L5 transverse processes are hypertrophied and on the left articulating with the sacrum. DISC SPACES: L4-L5 and L5-S1 intervertebral disc height loss. GASTROINTESTINAL TRACT: Normal as visualized. Included bowel gas pattern is non-obstructive. RAD/Lumbar Spine 2 or 3 Views IMPRESSION: 1. 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 The L5 transverse processes are hypertrophied and on the left articulating with the sacrum. 2. Degenerative changes. Electronically Signed: Donnell Moss DO at 23:53 EDT ,
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
[2023-12-29] VITALS: BP 127/75; PULSE 68; RESP 15; TEMP 36.4; O2SAT 99
[2023-12-29] LABS: ALB/GLOB Ratio 1.1 RATIO (0.9-2.4); AST(SGOT) 25 U/L (15-37); Alanine Aminotransfer ALT/SGPT 47 U/L (16-61); Alkaline Phosphatase 65 U/L (45-117); Anion Gap 6 (5-15); BUN 15 mg/dL (7-18); BUN/Creat Ratio 15.5 RATIO (10-20); Calcium,Total 9.2 mg/dL (8.5-10.1); Chloride 104 mmol/L (98-107); Creatinine, Serum 0.97 mg/dL (0.70-1.30); EST Glomerular Filtration Rate 95 mL/min (>60); Est Glom Filt Rate - Afr Amer 115 mL/min (>60); Estimated Creatinine Clearance 142.58 ml/min; Globulin 3.7 g/dL (2.2-4.2); Glucose 107 mg/dL (74-106); Potassium 3.7 mmol/L (3.5-5.1); Protein, Total 7.7 g/dL (6.4-8.2); Sodium Level 138 mmol/L (136-145)
[2023-12-29 00:10] VITALS: BP 127/75; PULSE 68; RESP 15; O2SAT 99
== END 2023-12-29 00:22 | disposition home or self-care (01) ==
PROVIDERS: Emergency Provider Emergency Medicine; Visit Provider Emergency Medicine
DX: R20.2 Paresthesia of skin (principal); F17.210 Nicotine dependence, cigarettes, uncomplicated
CPT/HCPCS: 72040; 72100; 80053; 99282

== ENCOUNTER 2024-03-04 22:20 | Emergency (ER) | payer MEDICAID, SELFPAY ==
[2024-03-04 22:21] VITALS: BP 130/81; PULSE 85; RESP 18; TEMP 37.1; O2SAT 98; BMI 29.4
--- NOTE | 2024-03-04 22:41 | CT_ITS ---
INDICATION: HEAD TRAUMA WITH EMESIS EXAMINATION: CT BRAIN - CT Head or Brain W/O Contrast Injection TECHNIQUE: Multiple axial images were obtained of the head with sagittal and coronal reconstructed images. Individualized dose optimization techniques were used for this CT. IV contrast dosage and agent: None. COMPARISON: None. FINDINGS: BRAIN PARENCHYMA: No evidence of an acute infarct or intracranial hemorrhage. No evidence of a mass. CSF SPACES: The ventricles, sulci and subarachnoid cisterns are appropriate for age. CALVARIUM, SKULL BASE, PARANASAL SINUSES AND MASTOID AIR CELLS: No fracture. Mastoid air cells are clear. Visualized paranasal sinuses are unremarkable. ORBITS: The globes, extraocular muscles, optic nerves and retrobulbar fat are unremarkable. CT/Brain/Head without Contrast IMPRESSION: Normal noncontrast CT of the head. Electronically Signed: Mario Samuel DO at 23:21 EDT ,
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
[2024-03-04] MEDS: Ondansetron ODT 4 MG Tablet PO (22:57)
== END 2024-03-04 23:38 | disposition home or self-care (01) ==
PROVIDERS: Emergency Provider Emergency Medicine; Visit Provider Emergency Medicine
DX: S06.0X0A Concussion without loss of consciousness, initial encounter (principal); S00.03XA Contusion of scalp, initial encounter; F17.210 Nicotine dependence, cigarettes, uncomplicated; W22.8XXA Striking against or struck by other objects, initial encounter; Y93.89 Activity, other specified; Y99.8 Other external cause status
CPT/HCPCS: 70450; 99282

== ENCOUNTER 2024-04-08 09:03 | Emergency (ER) | payer MEDICAID, SELFPAY ==
[2024-04-08 09:05] VITALS: BP 114/95; PULSE 61; RESP 18; TEMP 35.9; O2SAT 98; BMI 30.1
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
[2024-04-08] MEDS: Ibuprofen 400 MG Tablet 800 MG PO (09:18)
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
[2024-04-08 10:00] VITALS: BP 128/78; PULSE 81; RESP 18; TEMP 36.7; O2SAT 98
== END 2024-04-08 10:04 | disposition home or self-care (01) ==
PROVIDERS: Emergency Provider Emergency Medicine; Visit Provider Emergency Medicine
DX: S40.011A Contusion of right shoulder, initial encounter (principal); F17.210 Nicotine dependence, cigarettes, uncomplicated; V43.62XA Car passenger injured in collision with other type car in traffic accident, initial encounter
CPT/HCPCS: 73030; 99282

== ENCOUNTER 2024-04-24 11:56 | Emergency (ER) | payer SELFPAY ==
[2024-04-24 11:57] VITALS: BP 130/74; PULSE 73; RESP 16; TEMP 36.2; O2SAT 98; BMI 30.4
--- NOTE | 2024-04-24 13:25 | EKG12_ITS ---
Test Reason : N/V Blood Pressure : / mmHG Vent. Rate : 049 BPM Atrial Rate : 049 BPM P-R Int : 122 ms QRS Dur : 080 ms QT Int : 418 ms P-R-T Axes : 030 012 010 degrees QTc Int : 377 ms Sinus bradycardia with sinus arrhythmia Otherwise normal ECG Confirmed by IGGY KC, DENILSON ([id number]), publication editor OFELIA CRAWFORD ([id number]) on 04/25/2024 12:59:37 PM Referred By: Confirmed By:DENILSON PARKINSON MD
[2024-04-24] MEDS: Ondansetron 4 MG/2 ML Vial IV (13:39)
[2024-04-24] MEDS: 0.9% Normal Saline (1000mL) 1,000 ML 125 ML IV (13:39)
[2024-04-24 13:55] LABS: Bacteria 0 SEEN /hpf (None Seen); Mucous, Urine 0 SEEN /hpf (<or=2+); Red Blood Cells-Urine 0 SEEN /hpf (0-5); Squamous Epithelial Cells - UA 0 SEEN /hpf (0-5); White Blood Cells 0 SEEN /hpf (0-5)
[2024-04-24 13:56] VITALS: BP 125/70; PULSE 78; RESP 16; O2SAT 95
[2024-04-24 13:57] LABS: Absolute Lymphocyte Count 2.02 X10^3/uL (0.83-4.51); Absolute Neutrophil Count 5.2 X10^3/uL (2.0-7.7); Basophil# 0.04 X10^3/uL; Basophil% 0.5 % (0-1); Eosinophil# 0.39 X10^3/uL; Eosinophils% 4.6 % (0-5); Hematocrit 43.7 % (40-54); Hemoglobin 15.2 g/dL (13.0-16.5); Lymphocyte # 2.02 X10^3/ul (0.83-4.51); Lymphocyte % 23.8 % (19-41); Mean Corp Hgb Conc 34.8 g/dL (32-36); Mean Corpuscular Hgb 30.9 pg (27.0-32.0); Mean Corpuscular Volume 88.8 fL (80-94); Mean Platelet Vol. 10.9 fl (6.2-12.0); Monocyte# 0.78 X10^3/uL; Monocyte% 9.2 % (0-10); NRBC Flagged by Analyzer 0 % (0-5); Neutrophil # 5.19 X10^3/uL (2.7-7.7); Neutrophil % 61.1 % (47-70); Platelet Count 214 K/mm3 (150-450); RBC Distribution Width CV 12.5 % (11.6-14.6); RBC Distribution Width SD 40.4 fl (35.1-43.9); Red Blood Count 4.92 M/mm3 (4.6-6.2); White Blood Count 8.5 K/mm3 (4.4-11.0)
[2024-04-24 14:01] LABS: Color, Urine Yellow (Yellow); Glucose, Dipstick Normal (Normal); Ketone-Dipstick Negative (Negative); Leukocyte Esterase-Dipstick Negative /ul (Negative); Nitrite-Dipstick Negative (Negative); Occult Blood-Urine Negative /ul (Negative); Protein-Dipstick Negative (Negative); Urine Bilirubin Dipstick Negative (Negative); Urine Clarity Clear (Clear); Urine Urobilinogen Normal (Normal)
[2024-04-24 14:24] LABS: ALB/GLOB Ratio 1.2 RATIO (0.9-2.4); AST(SGOT) 27 U/L (15-37); Alanine Aminotransfer ALT/SGPT 35 U/L (16-61); Albumin, Serum 4.1 g/dL (3.2-5.0); Alkaline Phosphatase 66 U/L (45-117); Anion Gap 8 (5-15); BUN 11 mg/dL (7-18); BUN/Creat Ratio 12.6 RATIO (10-20); Calcium,Total 9.6 mg/dL (8.5-10.1); Chloride 102 mmol/L (98-107); Creatinine, Serum 0.88 mg/dL (0.70-1.30); EST Glomerular Filtration Rate 106 mL/min (>60); Est Glom Filt Rate - Afr Amer 129 mL/min (>60); Estimated Creatinine Clearance 156.03 ml/min; Globulin 3.3 g/dL (2.2-4.2); Glucose 100 mg/dL (74-106); Lipase 69 U/L (13-75); Potassium 4.2 mmol/L (3.5-5.1); Protein, Total 7.4 g/dL (6.4-8.2); Sodium Level 139 mmol/L (136-145)
[2024-04-24] MEDS: Diphth,Pertuss(Acell),Tet Vac 0.5 ML Vial IM (14:43)
--- NOTE | 2024-04-24 15:40 | EX.ED.DYSGE1 ---
HPI History of Present Illness Chief Complaint: Nausea/Vomiting Informant: patient Onset/Context/Timing Onset: Today Narrative Narrative: Patient is a 33-year-old male with no significant past medical history presenting with ongoing episodes of nausea, vomiting and epigastric abdominal discomfort. Has been going on for months to but worse over the last month. He states he is vomiting every day. States he feel he can control the heat of his body. He feels that he has constant heartburn. Has had some diarrhea denies any black or blood in the stool. In addition he was using a nail gun today and the nail struck his left index finger. When he jerked his hand away the nail is no longer stuck in his finger but he is requesting an update for his tetanus vaccine. No reported fevers. Does not significant for the symptoms. No other complaints or concerns at this time. Reports tobacco use but denies any marijuana, illicit drug use or alcohol use. [facility] Home Medications ?Medication ?Instructions ?Recorded ?Last Taken ?Type ondansetron 4 mg disintegrating 4 mg PO Q6H PRN nausea and 03/04/24 Unknown Rx tablet vomiting #7 tabs omeprazole 20 mg capsule,delayed 40 mg (2 x 20 mg) PO DAILY #30 04/24/24 Unknown Rx release CAPSULES ondansetron 4 mg disintegrating 4 mg PO Q6H PRN nausea and 04/24/24 Unknown Rx tablet vomiting #20 tabs Allergy/AdvReac Type Severity Reaction Status Date / Time piperacillin (From Zosyn) AdvReac Rash Verified 04/24/24 11:57 tazobactam (From Zosyn) AdvReac Rash Verified 04/24/24 11:57 Surgical History Hx of tympanostomy tubes History of appendectomy Social History Smoking Status: Current every day smoker tobacco type: cigarettes substance use type: does not use ROS ROS ED Constitutional Constitutional ED: Reports sweats; Denies chills or fever(s) Cardiovascular Cardiovascular: Reports chest pain Respiratory/Chest Respiratory/Chest: Denies cough or dyspnea Gastrointestinal Gastrointestinal: Reports abdominal pain, diarrhea, nausea and vomiting Genitourinary Genitourinary ED: Reports hematuria; Denies dysuria Musculoskeletal Musculoskeletal: Denies arthralgias or myalgias Integumentary Denies rash Neurologic Neurologic: Denies paresthesias or weakness EXAM Physical Exam Const Vital Signs: 04/24/24 11:57 04/24/24 13:56 Temperature 97.1 F L Temperature Source Temporal Pulse Rate 73 78 Respiratory Rate 16 16 Blood Pressure 130/74 H 125/70 H Blood Pressure Mean 92 88 Pulse Ox 98 95 Oxygen Delivery Method Room Air Room Air Positive well nourished and well developed General Appearance ED: well developed and NAD HEENT Reports moist mucous membranes Eyes PERRL and EOMs intact bilaterally General Eye ED: Negative for pale conjunctiva Neck supple Chest Wall inspection of chest normal Resp normal respiratory effort and clear to auscultation bilaterally Cardio regular rate and regular rhythm GI normal to inspection, nondistended, normoactive bowel sounds and non-tender Extremity Extremity Narrative: Normal range of motion specifically of the left index finger. No obvious tendon injury. General Extremety ED: Negative for edema General Extremity: Negative for edema Neuro oriented x3 Sensorium / Orientation: alert Motor Exam: Negative for general weakness Psych mental status grossly normal Skin Skin Narrative: Superficial abrasion to the lateral aspect of the left distal index finger. No active bleeding. MDM MDM MDM Narrative Medical decision making narrative: Patient is a 33-year-old male presenting for 1 month of daily nausea, vomiting, intermittent abdominal pain, some chest discomfort as well as wound to his finger requiring a tetanus booster. Patient states he has chest pain but sounds more like it is epigastric/esophageal nature however will obtain EKG to rule out ACS. This is negative for any acute ischemic changes. He is PE RC negative I do not think requires a D-dimer. This does not really sound cardiac and I do not think he requires a troponin given the longevity of his symptoms and his normal EKG. He is mildly bradycardic however I suspect this is just due to his young age and he otherwise has normal vital signs. His lab work normal. His normal BUN and creatinine. No transaminitis. No leukocytosis. No signs of anemia. No signs of infection or hematuria in his urine. Patient is given Zofran and IV fluids in the emergency room. His tetanus is updated. Counseled that the cause of symptoms not clear but given his benign abdominal exam and normal labs I do not think he requires imaging emergently at this time. Encouraged return to the emergency room if he has a progression or change in symptoms. Is given outpatient referral to GI and will start him on PPI as I suspect his symptoms more reflux related. Is also given a prescription for Zofran. Patient verbalized agreement understand this plan. Discharged from the hospital. I left the ER with a steady gait. Lab Data Attestation: I reviewed the patient's lab results. Labs: Laboratory Results - last 24 hr 04/24/24 04/24/24 13:30 13:40 WBC 8.5 RBC 4.92 Hgb 15.2 Hct 43.7 MCV 88.8 MCH 30.9 MCHC 34.8 RDW Std Deviation 40.4 RDW Coeff of Yousif 12.5 Plt Count 214 MPV 10.9 Immature Gran % (Auto) 0.800 Neut % (Auto) 61.1 Lymph % (Auto) 23.8 Sterling % (Auto) 9.2 Eos % (Auto) 4.6 Baso % (Auto) 0.5 Absolute Neuts (auto) 5.2 Absolute Lymphs (auto) 2.02 Nucleated RBC % 0 Sodium 139 Potassium 4.2 Chloride 102 Carbon Dioxide 29.0 Anion Gap 8 BUN 11 Creatinine 0.88 Estim Creat Clear Calc 156.03 Est GFR (MDRD) Af Amer 129 Est GFR (MDRD) Non-Af 106 BUN/Creatinine Ratio 12.6 Glucose 100 Calcium 9.6 Total Bilirubin 0.40 AST 27 ALT 35 Alkaline Phosphatase 66 Total Protein 7.4 Albumin 4.1 Globulin 3.3 Albumin/Globulin Ratio 1.2 Lipase 69 Urine Color Yellow Urine Clarity Clear Urine pH 7.0 Ur Specific [place] 1.010 Urine Protein Negative Urine Glucose (UA) Normal Urine Ketones Negative Urine Occult Blood Negative Urine Nitrite Negative Urine Bilirubin Negative Urine Urobilinogen Normal Ur Leukocyte Esterase Negative Urine RBC 0 SEEN Urine WBC 0 SEEN Ur Squamous Epith Cells 0 SEEN Urine Bacteria 0 SEEN Urine Mucus 0 SEEN Rhythm Strip Rhythm Strip: Sinus Rhythm Rate: 49 Ectopy: None EKG Initial EKG: Attestation: I personally reviewed and interpreted this EKG as follows: Interpretation: Sinus Bradycardia Comments: Sinus bradycardia at a rate of 49 bpm with sinus arrhythmia Normal axis Normal intervals Normal ST segments Discharge Plan Triage Chief Complaint: Nausea/Vomiting ED Provider: Corrine Sarah Dx/Rx/DC Orders Clinical Impression: Nausea & vomiting, Need for Tdap vaccination Instructions: ED Abdominal Pain Unkn Cause Male..., ED Vomit Diarrhea Nonspec Adult Prescriptions: New ondansetron 4 mg tablet,disintegrating 4 mg PO Q6H PRN (Reason: nausea and vomiting) Qty: 20 0RF omeprazole 20 mg capsule,delayed release(DR/EC) 40 mg PO DAILY Qty: 30 0RF No Action ondansetron 4 mg tablet,disintegrating 4 mg PO Q6H PRN (Reason: nausea and vomiting) Qty: 7 0RF Rx Instructions: As needed if you have continued nausea. Stand Alone Forms: ED Work / School Excuse Primary Care Provider: Care Physician,No Primary Referrals: Friend,Stu, DO [Med Staff - Active Staff] - As soon as possible Care Physician,No Primary [Primary Care Provider] - Print Language: Azeri Disposition Disposition: Home, Self Care
== END 2024-04-24 15:47 | disposition home or self-care (01) ==
PROVIDERS: Emergency Provider Emergency Medicine; Visit Provider Emergency Medicine
DX: R11.2 Nausea with vomiting, unspecified (principal); R07.89 Other chest pain; F17.210 Nicotine dependence, cigarettes, uncomplicated; S60.411A Abrasion of left index finger, initial encounter; W29.4XXA Contact with nail gun, initial encounter; Z23 Encounter for immunization
CPT/HCPCS: 80053; 81001; 83690; 85025; 90715; 93005; 96361; 96374; 99282; J2405

== ENCOUNTER 2024-05-21 13:47 | Emergency (ER) | payer SELFPAY ==
[2024-05-21 13:47] VITALS: BP 120/84; PULSE 82; RESP 18; TEMP 36.8; O2SAT 97; BMI 29.5
--- NOTE | 2024-05-21 14:04 | RAD_ITS ---
STUDY: X-RAY - LEFT HAND REASON FOR EXAM: Male, 33 years old. trauma TECHNIQUE: 3 view(s) of the hand. COMPARISON: None. FINDINGS: Normal radiocarpal articulation. Normal distal radioulnar joint. Normal visualized carpal bones. Normal carpal articulations Normal carpometacarpal articulation of the thumb. Normal second through fifth carpometacarpal joints. Normal metacarpi. Normal metacarpophalangeal joint of the thumb. Normal interphalangeal joint of the thumb. Normal proximal and distal phalanges of the thumb. No demonstrated fracture or displaced bony fragments. Normal metacarpophalangeal joints of the second through fifth fingers. Normal proximal and distal interphalangeal joints of the second through fifth fingers. Normal phalanges of the second through fifth fingers. The soft tissue structures are unremarkable. RAD/Hand Min 3 Views IMPRESSION: 1. Normal x-ray examination of the hand. Electronically Signed: Clay Spencer MD at 14:38 EDT ,
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
== END 2024-05-21 15:22 | disposition home or self-care (01) ==
PROVIDERS: Emergency Provider Emergency Medicine; Visit Provider Emergency Medicine
DX: S60.042A Contusion of left ring finger without damage to nail, initial encounter (principal); F17.210 Nicotine dependence, cigarettes, uncomplicated; X58.XXXA Exposure to other specified factors, initial encounter
CPT/HCPCS: 73130; 99283

== ENCOUNTER 2024-09-01 10:17 | Emergency (ER) | payer MEDICAID, SELFPAY ==
[2024-09-01 10:18] VITALS: BP 145/9; PULSE 71; RESP 18; TEMP 36.6; O2SAT 99; BMI 30.8
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
[2024-09-01] MEDS: Tetracaine 0.5% Ophthalmic Bottle 1 DRP OPHTHALMIC (11:20)
[2024-09-01] MEDS: Fluorescein 1 MG STRIP 1 STRIP OPHTHALMIC (11:21)
[2024-09-01] MEDS: Ondansetron ODT 4 MG Tablet PO (12:11)
[2024-09-01] MEDS: Erythromycin Base 1 OPTH.TUBE 1 APPLIC RIGHT EYE (12:32)
[2024-09-01 12:35] VITALS: BP 137/66; PULSE 82; RESP 15; TEMP 36.6; O2SAT 100
== END 2024-09-01 12:35 | disposition home or self-care (01) ==
PROVIDERS: Emergency Provider Emergency Medicine; Visit Provider Emergency Medicine
DX: S05.01XA Injury of conjunctiva and corneal abrasion without foreign body, right eye, initial encounter (principal); F17.210 Nicotine dependence, cigarettes, uncomplicated; X58.XXXA Exposure to other specified factors, initial encounter
CPT/HCPCS: 99283

== ENCOUNTER 2024-12-09 07:41 | Emergency (ER) | payer MEDICAID, SELFPAY ==
[2024-12-09 07:42] VITALS: BP 121/86; PULSE 72; RESP 18; TEMP 37.2; O2SAT 99; BMI 27.9
--- NOTE | 2024-12-09 08:03 | ED.VIS.GI ---
HPI HPI - GI History of Present Illness Chief Complaint: Nausea/Vomiting Informant: patient Narrative Narrative: 34-year-old male who does not have a primary care doctor presenting to the ER for 8 or 9 months or more of symptoms that include nausea and vomiting in the mornings only and loose stools with some tenesmus at times. Sometimes he has 5 or 6 bowel movements in a day although that is not typical. He denies any blood or melena in his stools and no mucus. He states in the mornings oftentimes he has nausea and vomiting before eating, no matter what he eats the previous evening, and other times it is after eating something in the morning. He denies vomiting other parts of the day even if he eats. He denies having any abdominal pains associated with any of this. He has been to urgent care but never really had this evaluated otherwise. Prior appendectomy no other abdominal surgeries in the past. No problems urinating no polyuria or polydipsia. PFSH PFSH Medical History no medical history no medical history Home Medications ?Medication ?Instructions ?Recorded ?Last Taken ?Type pantoprazole 40 mg tablet,delayed 40 mg PO DAILY #30 tabs 12/09/24 Unknown Rx release Allergy/AdvReac Type Severity Reaction Status Date / Time piperacillin (From Zosyn) AdvReac Rash Verified 12/09/24 07:42 tazobactam (From Zosyn) AdvReac Rash Verified 12/09/24 07:42 Family History no significant family his Surgical History Hx of tympanostomy tubes History of appendectomy Social History Smoking Status: Current every day smoker tobacco type: cigarettes substance use type: does not use ROS ROS ED Constitutional Constitutional ED: Denies chills or fever(s) Eyes Eyes: Denies change in vision or diplopia ENT ENT ED: Denies rhinorrhea or sore throat Cardiovascular Cardiovascular: Denies chest pain or palpitations Respiratory/Chest Respiratory/Chest: Denies cough or dyspnea Gastrointestinal Gastrointestinal: Reports loose stools, nausea, tenesmus, vomiting and other Details: No mucus in stools ; Denies abdominal pain, hematemesis, hematochezia or melena Genitourinary Genitourinary ED: Denies dysuria or hematuria Musculoskeletal Musculoskeletal: Denies back pain or neck pain Integumentary Denies abscess or rash Neurologic Neurologic: Denies headache(s), paresthesias or weakness Psychiatric Psychiatric: Denies anxiety or suicidal thoughts EXAM Physical Exam Const Vital Signs: 12/09/24 07:42 Temperature 98.9 F Temperature Source Oral Pulse Rate 72 Respiratory Rate 18 Blood Pressure 121/86 H Blood Pressure Mean 97 Pulse Ox 99 Oxygen Delivery Method Room Air Positive well nourished and well developed Constitutional Narrative: Well-appearing General Appearance ED: well developed and NAD HEENT Reports moist mucous membranes normocephalic and atraumatic Eyes PERRL and EOMs intact bilaterally Neck full ROM and supple Resp normal respiratory effort and clear to auscultation bilaterally Cardio regular rate, regular rhythm and no murmurs Rate: Negative for tachycardic GI non-tender and non-distended Auscultation: normoactive bowel sounds Palpation: soft; Negative for mass Back/Spine no CVA tenderness General Back: other FROM Extremity normal to inspection General Extremety ED: Negative for edema, pulses abnormal or tenderness General Extremity: Negative for edema or pulses abnormal Neuro oriented x3, CN's II-XII intact bilaterally, no sensory deficits noted and gait normal Sensorium / Orientation: awake and alert Motor Exam: strength 5/5 throughout Psych mental status grossly normal and thought process normal Skin no rashes or lesions noted and no wounds MDM MDM MDM Narrative Medical decision making narrative: This sounds like it could be a functional GI disorder, he was concerned about an ulcer which it does not sound like since he is eating other times throughout the day and having no pain or vomiting. Could be colitis, more likely to be some type of inflammatory colitis if it is. At this time no emergent imaging is indicated as I discussed with him but I did obtain some labs including liver enzymes and a lipase to rule out biliary or pancreatic ductal obstructions from masses, etc. Labs are all normal. Blood glucose 109. There is no indication for advanced imaging at this time given all of this. I am going to put him on a PPI and advised that he follow-up with GI and I am also going to give him a PCP to follow-up with. His vital signs are normal right now. Next on the unassigned list is Dr. Coon. Lab Data Attestation: I reviewed the patient's lab results. Labs: Laboratory Results - last 24 hr 12/09/24 08:10 WBC 6.7 RBC 4.83 Hgb 15.3 Hct 43.7 MCV 90.5 MCH 31.7 MCHC 35.0 RDW Std Deviation 42.5 RDW Coeff of Yousif 12.9 Plt Count 220 MPV 10.7 Immature Gran % (Auto) 1.100 H Neut % (Auto) 54.3 Lymph % (Auto) 26.6 Gregg % (Auto) 8.7 Eos % (Auto) 8.7 H Baso % (Auto) 0.6 Absolute Neuts (auto) 3.6 Absolute Lymphs (auto) 1.77 Nucleated RBC % 0 Sodium 139 Potassium 4.1 Chloride Direct 103 Carbon Dioxide 26.5 Anion Gap 10 BUN 12 Creatinine 0.90 Estim Creat Clear Calc 138.23 Est GFR (MDRD) Non-Af 115 BUN/Creatinine Ratio 13.0 Glucose 109 H Calcium 9.3 Total Bilirubin 0.40 AST 24 ALT 26 Alkaline Phosphatase 64 Total Protein 7.1 Albumin 4.4 Globulin 2.7 Albumin/Globulin Ratio 1.6 Lipase 39 Discharge Plan Triage Chief Complaint: Nausea/Vomiting ED Provider: Harry Tabares Dx/Rx/DC Orders Clinical Impression: Gastritis, Vomiting, Frequent loose stools Instructions: ED Gastritis (Adult) Prescriptions: New pantoprazole 40 mg tablet,delayed release (DR/EC) 40 mg PO DAILY Qty: 30 0RF Discontinued ondansetron 4 mg tablet,disintegrating 4 mg PO Q6H PRN (Reason: nausea and vomiting) Qty: 20 0RF omeprazole 20 mg capsule,delayed release(DR/EC) 40 mg PO DAILY Qty: 30 0RF ondansetron 4 mg tablet,disintegrating 4 mg PO Q6H PRN (Reason: nausea and vomiting) Qty: 7 0RF Rx Instructions: As needed if you have continued nausea. Primary Care Provider: Care Physician,No Primary Referrals: Manju Coon DO [Med Staff - Active Staff] - FriendStu DO [Med Staff - Active Staff] - (call for appt) Print Language: [place]orese Disposition Disposition: Home, Self Care
[2024-12-09 08:17] LABS: Absolute Lymphocyte Count 1.77 X10^3/uL (0.83-4.51); Absolute Neutrophil Count 3.6 X10^3/uL (2.0-7.7); Basophil# 0.04 X10^3/uL; Basophil% 0.6 % (0-1); Eosinophil# 0.58 X10^3/uL; Eosinophils% 8.7 % (0-5); Hematocrit 43.7 % (40-54); Hemoglobin 15.3 g/dL (13.0-16.5); Lymphocyte # 1.77 X10^3/ul (0.83-4.51); Lymphocyte % 26.6 % (19-41); Mean Corpuscular Hgb 31.7 pg (27.0-32.0); Mean Corpuscular Volume 90.5 fL (80-94); Mean Platelet Vol. 10.7 fl (6.2-12.0); Monocyte# 0.58 X10^3/uL; Monocyte% 8.7 % (0-10); NRBC Flagged by Analyzer 0 % (0-5); Neutrophil # 3.62 X10^3/uL (2.7-7.7); Neutrophil % 54.3 % (47-70); Platelet Count 220 K/mm3 (150-450); RBC Distribution Width CV 12.9 % (11.6-14.6); RBC Distribution Width SD 42.5 fl (35.1-43.9); Red Blood Count 4.83 M/mm3 (4.6-6.2); White Blood Count 6.7 K/mm3 (4.4-11.0)
[2024-12-09 08:37] LABS: ALB/GLOB Ratio 1.6 RATIO (0.9-2.4); AST(SGOT) 24 U/L (<=37); Alanine Aminotransfer ALT/SGPT 26 U/L (<=46); Albumin, Serum 4.4 g/dL (3.5-5.0); Alkaline Phosphatase 64 U/L (40-129); Anion Gap 10 (5-15); BUN 12 mg/dL (4-19); Calcium 9.3 mg/dL (7.6-11.0); Carbon Dioxide 26.5 mmol/L (22.0-29.0); Chloride 103 mmol/L (96-108); EST Glomerular Filtration Rate 115 (>60); Estimated Creatinine Clearance 138.23 ml/min (50-250); Globulin 2.7 g/dL (2.2-4.2); Glucose 109 mg/dL (70-99); Lipase 39 U/L (13-75); Potassium 4.1 mmol/L (3.3-5.1); Protein, Total 7.1 g/dL (5.9-8.4); Sodium Level 139 mmol/L (133-145)
== END 2024-12-09 09:11 | disposition home or self-care (01) ==
PROVIDERS: Emergency Provider Emergency Medicine; Visit Provider Emergency Medicine
DX: K29.70 Gastritis, unspecified, without bleeding (principal); R19.7 Diarrhea, unspecified; R11.2 Nausea with vomiting, unspecified
CPT/HCPCS: 80053; 83690; 85025; 99282; A4216

== ENCOUNTER 2024-12-19 08:27 | Emergency (ER) | payer MEDICAID, SELFPAY ==
[2024-12-19 08:28] VITALS: BP 142/87; PULSE 60; RESP 15; TEMP 36.7; O2SAT 98; BMI 28.7
--- NOTE | 2024-12-19 08:37 | EDS_ITS ---
HPI History of Present Illness Chief Complaint: Nausea/Vomiting PFSH PFS Home Medications ?Medication ?Instructions ?Recorded ?Last Taken ?Type pantoprazole 40 mg tablet,delayed 40 mg PO DAILY #30 t abs 12/09/24 Unknown Rx release haloperidol 5 mg tablet 5 mg PO BID PRN agitation, n ausea 12/16/24 Unknown Rx #60 tabs Allergy/AdvReac Type Severity Reaction Status Date / Time piperacillin (From Zosyn) AdvReac Rash Verified 12/19/24 08:31 tazobactam (From Zosyn) AdvReac Rash Verified 12/19/24 08:31 Surgical History Hx of tympanostomy tubes History of appendectomy Social History Smoking Status: Former smoker substance use type: does not use EXAM Physical Exam Const Vital Signs: 12/19/24 08:28 Temperature 98.1 F Temperature Source Temporal Pulse Rate 60 Respiratory Rate 15 Blood Pressure 142/87 H Blood Pressure Mean 105 Pulse Ox 98 Oxygen Delivery Method Room Air Discharge Plan Triage Chief Complaint: Nausea/Vomiting ED Provider: Dakotah Monique Dx/Rx/DC Orders Prescriptions: No Action haloperidol 5 mg tablet 5 mg PO BID PRN (Reason: agitation, nausea) Qty: 60 0RF pantoprazole 40 mg tablet,delayed release (DR/EC) 40 mg PO DAILY Qty: 30 0RF Primary Care Provider: Care Physician,No Primary Referrals: Care Physician,No Primary [Primary Care Provider] - Print Language: Kuwaiti
--- NOTE | 2024-12-19 08:37 | EX.ED.DYSGE1 ---
HPI History of Present Illness Chief Complaint: Nausea/Vomiting Detail of Chief Complaint: I feel restless Informant: patient Onset/Context/Timing Onset: Yesterday Context: Sudden Onset Timing: Continuous Quality: I feel uncomfortable and unable to relax Location: Generalized Current Severity: Moderate Maximum Severity: Severe Worsened by: Haldol Relieved by: Nothing Associated Symptoms Associated Symptoms: None Narrative Narrative: Patient was recently seen for nausea and vomiting. He was placed on Haldol. Patient presents with restlessness. Symptoms are consistent with akathisia. He has absolutely no other symptoms. Prior similar symptoms: No Recent Illness/Hospitalization: Yes (Outside facility) [facility] Home Medications ?Medication ?Instructions ?Recorded ?Last Taken ?Type pantoprazole 40 mg tablet,delayed 40 mg PO DAILY #30 tabs 12/09/24 Unknown Rx release haloperidol 5 mg tablet 5 mg PO BID PRN agitation, nausea 12/16/24 Unknown Rx #60 tabs benztropine 1 mg tablet 1 mg PO TID #6 tabs 12/19/24 Unknown Rx Allergy/AdvReac Type Severity Reaction Status Date / Time piperacillin (From Zosyn) AdvReac Rash Verified 12/19/24 08:31 tazobactam (From Zosyn) AdvReac Rash Verified 12/19/24 08:31 Family History no significant family his Surgical History Hx of tympanostomy tubes History of appendectomy Social History Smoking Status: Current every day smoker tobacco type: cigarettes substance use type: does not use ROS ROS ED Constitutional Constitutional ED: Denies chills, fever(s), subjective or sweats Eyes Eyes: Denies blurry vision or change in vision Cardiovascular Cardiovascular: Denies chest pain or palpitations Respiratory/Chest Respiratory/Chest: Denies cough or dyspnea Gastrointestinal Gastrointestinal: Denies abdominal pain, diarrhea, nausea or vomiting Neurologic Neurologic: Denies weakness Psychiatric Psychiatric: Reports anxiety; Denies depression Hematologic/Lymphatic Hematologic/Lymphatic: Reports systems reviewed and no addt'l complaints, except as documented EXAM Physical Exam Const Vital Signs: 12/19/24 08:28 Temperature 98.1 F Temperature Source Temporal Pulse Rate 60 Respiratory Rate 15 Blood Pressure 142/87 H Blood Pressure Mean 105 Pulse Ox 98 Oxygen Delivery Method Room Air Positive well nourished and well developed Constitutional Narrative: BMI is 20.7. General Appearance ED: well developed; Negative for cyanotic, diaphoretic, NAD or pallor HEENT Reports moist mucous membranes HEENT Narrative: Head is atraumatic normocephalic. Ears normal. Nares patent. There is no lipsmacking or abnormal facial movements Eyes PERRL and EOMs intact bilaterally Eyes Narrative: There is no nystagmus. General Eye ED: Negative for pale conjunctiva or scleral icterus Neck no lymphadenopathy, supple and no JVD Resp normal respiratory effort and clear to auscultation bilaterally Cardio regular rate, regular rhythm, S1 normal heart sound, S2 normal heart sound and no murmurs Neuro oriented x3 and CN's II-XII intact bilaterally Sensorium / Orientation: alert Psych mental status grossly normal Skin no rashes or lesions noted, no wounds and skin turgor normal General Skin Exam: Negative for jaundice or pallor MDM MDM MDM Narrative Medical decision making narrative: Patient presents with restlessness. Patient was recently prescribed Haldol to treat cannabis hyperemesis syndrome. Patient states he cannot calm himself down. He feels like he has to be in constant motion. Patient's symptoms are consistent with dystonic reaction, akathisia. This is due to the Haldol. Patient will receive 1 mg of Cogentin IV in the emergency department. If this alleviates his symptoms we will prescribe Cogentin for the next 24 to 48 hours. History & Record Review Additional record(s) reviewed:: Prior ED visit (Patient was seen earlier this month by Dr. Capps for GI symptoms.) and Prior labs Treatment and Re-Evaluation :: Patient was reassessed at 0922. His symptoms have resolved. He was discharged with prescription for Cogentin. Discharge Plan Triage Chief Complaint: Nausea/Vomiting ED Provider: Dakotah Monique Dx/Rx/DC Orders Clinical Impression: Acute medication-induced akathisia, Elevated blood-pressure reading without diagnosis of hypertension Instructions: ED Drug Reaction, Other, ED Hypertension, To Be Confirmed Prescriptions: New benztropine 1 mg tablet 1 mg PO TID Qty: 6 0RF No Action haloperidol 5 mg tablet 5 mg PO BID PRN (Reason: agitation, nausea) Qty: 60 0RF pantoprazole 40 mg tablet,delayed release (DR/EC) 40 mg PO DAILY Qty: 30 0RF Primary Care Provider: Care Physician,No Primary Referrals: Care Physician,No Primary [Primary Care Provider] - Activity Restrictions/Additional Instructions: You will need to follow-up with your primary care provider. The name of your providers listed on your insurance card issued to you by [facility]. Recommend follow-up in 1 to 2 weeks to have your blood pressure reassessed. Print Language: South African Disposition Disposition: Home, Self Care
[2024-12-19 09:34] VITALS: BP 129/74; PULSE 60; RESP 16; TEMP 36.7; O2SAT 98
== END 2024-12-19 09:40 | disposition home or self-care (01) ==
PROVIDERS: Emergency Provider Emergency Medicine; Visit Provider Emergency Medicine
DX: G25.71 Drug induced akathisia (principal); R03.0 Elevated blood-pressure reading, without diagnosis of hypertension; F17.210 Nicotine dependence, cigarettes, uncomplicated
CPT/HCPCS: 96374; 99283; A4216

== ENCOUNTER 2025-01-31 16:53 | Emergency (ER) | payer MEDICAID, SELFPAY ==
[2025-01-31 16:54] VITALS: BP 141/99; PULSE 76; RESP 20; TEMP 36.3; O2SAT 98
--- NOTE | 2025-01-31 17:48 | EDS_ITS ---
HPI HPI - GI History of Present Illness Chief Complaint: GI Bleed Informant: patient Narrative Narrative: Presents by private vehicle for evaluation concerns for coffee-ground emesis and bright red blood per rectum. Increasing abdominal pain. History of marijuana use he states been cutting down last use 7 days ago. He was feeling fine he until he ate pizza at 3 PM. States shortly afterwards felt sick he threw approximately 5 times reporting coffee-ground emesis. States shortly after had 3 diarrhea episodes with streaks of bright red blood there is no clots. Is not on any blood thinners. Reporting epigastric pain. He states a week ago follow- up with the [facility] due to pain they put him on Carafate he has a scheduled EGD in 5 days. He is currently on pantoprazole also. He is seeing gastroenterology a month ago from follow-up placed on Haldol. He has taken 1 of these medications. Prior similar symptoms: Yes PFSH [facility] Home Medications ?Medication ?Instructions ?Recorded ?Last Taken ?Type pantoprazole 40 mg tablet,delayed 40 mg PO DAILY #30 t abs 12/09/24 Unknown Rx release haloperidol 5 mg tablet 5 mg PO BID PRN agitation, n ausea 12/16/24 Unknown Rx #60 tabs benztropine 1 mg tablet 1 mg PO TID #6 tabs 12/19/24 Unknown Rx omeprazole 40 mg capsule,delayed 40 mg PO BID #60 caps 01/31/25 Unknown Rx release Allergy/AdvReac Type Severity Reaction Status Date / Time piperacillin (From Zosyn) AdvReac Rash Verified 01/31/25 16:57 tazobactam (From Zosyn) AdvReac Rash Verified 01/31/25 16:57 Family History no significant family his Surgical History Hx of tympanostomy tubes History of appendectomy Social History Smoking Status: Former smoker substance use type: does not use ROS ROS ED Constitutional Constitutional ED: Denies chills, fever(s) or sweats ENT ENT ED: Denies sore throat Cardiovascular Cardiovascular: Denies chest pain, leg edema, palpitations or racing heartbeat Respiratory/Chest Respiratory/Chest: Denies cough, dyspnea or dyspnea on exertion Gastrointestinal Gastrointestinal: Reports abdominal pain, diarrhea, nausea, vomiting and other Details: reports coffee-ground emesis, streaks of bright red blood per rectum. Genitourinary Genitourinary ED: Denies dysuria, hematuria or urinary frequency Musculoskeletal Musculoskeletal: Denies back pain, extremity pain or neck pain Integumentary Denies rash or wounds Neurologic Neurologic: Denies headache(s), paresthesias or weakness EXAM Physical Exam Const Vital Signs: 01/31/25 16:54 01/31/25 18:54 01/31/25 19:31 Temperature 97.3 F L Temperature Source Temporal Pulse Rate 76 57 L Respiratory Rate 20 H Blood Pressure 141/99 H 135/80 H 142/79 H Blood Pressure Mean 113 98 100 Pulse Ox 98 Oxygen Delivery Method Room Air 01/31/25 19:48 Temperature 97.3 F L Temperature Source Pulse Rate 57 L Respiratory Rate 18 Blood Pressure 135/80 H Blood Pressure Mean 98 Pulse Ox 98 Oxygen Delivery Method Positive well nourished and well developed Constitutional Narrative: Tearful, anxious, nontoxic General Appearance ED: well developed and NAD HEENT Reports moist mucous membranes normocephalic and atraumatic Eyes General Eye ED: Yes normal appearance of both eyes Neck full ROM Chest Wall Chest: Negative for tenderness Resp normal respiratory effort and normal air movement Effort and Inspection: symmetric chest movement; Negative for respiratory distress Cardio regular rate, regular rhythm and no murmurs Peripheral Pulses: pulses 2+ throughout GI normal to inspection, nondistended, normoactive bowel sounds GI Narrative: Tender epigastrium primarily with mild generalized tenderness. Rectal exam: No hemorrhoids. Digital exam no gross blood, slight tenderness brown stools, Hemoccult sent. Palpation: Negative for guarding or rebound tenderness present Extremity normal to inspection General Extremety ED: Negative for edema or tenderness General Extremity: Negative for edema Neuro oriented x3 and no sensory deficits noted Sensorium / Orientation: awake and alert Skin no rashes or lesions noted and no wounds MDM MDM MDM Narrative Medical decision making narrative: Interventions / MDM: Differential diagnosis: Gastric ulcer, GI bleed Diagnosis considered but do not suspect: Pneumoperitoneum however CT negative My EKG interpretation: N/A Imaging independently reviewed and interpreted by myself: CT angiogram abdomen pelvis: No acute process per radiology. External documents reviewed: N/A Test considered but not ordered:N/A ED course: Patient is uncomfortable reports coffee-ground emesis and bright red blood that were streaks. There is no gross blood on rectal exam. Abdominal labs were ordered, CT angiogram abdomen pelvis for further evaluation. IV Protonix ordered Zofran ordered. Fluids given. 1934: CT scan negative hemoglobin 15.5. Lipase normal. Creatinine normal. BUN is 11. No additional vomiting or bloody stools in the ED. Hemoccult returned positive. Apparently patient scheduled with Dr. Jordyn Howell in 5 days for upper endoscopy therefore I discussed with on-call surgeon Dr. Warren, would like to switch him to omeprazole 40 mg twice daily continue Carafate she will relay for outpatient scopes possibly adding lower scope. Discussed strict return precautions for continued bright red blood per rectum with clots. Patient comfortable with plan. Prescription sent to his pharmacy. Re-evaluation: stable Disposition discussed with patient/family/significant other: Patient Case discussed with consulting clinician: General Surgery This note was generated with Vinted dictation software. It may contain incorrect words, spelling, and punctuation that were not noted in checking the note before signing. Lab Data Attestation: I reviewed the patient's lab results. Labs: Laboratory Results - last 24 hr 01/31/25 17:48 WBC 8.6 RBC 4.83 Hgb 15.5 Hct 43.0 MCV 89.0 MCH 32.1 H MCHC 36.0 RDW Std Deviation 41.1 RDW Coeff of Yousif 12.7 Plt Count 204 MPV 11.1 Immature Gran % (Auto) 0.600 Neut % (Auto) 63.8 Lymph % (Auto) 23.4 [place] % (Auto) 8.7 Eos % (Auto) 2.9 Baso % (Auto) 0.6 Absolute Neuts (auto) 5.5 Absolute Lymphs (auto) 2.02 Nucleated RBC % 0 PT 13.1 INR 1.0 APTT 25.9 Sodium 140 Potassium 3.6 Chloride 102 Carbon Dioxide 27.3 Anion Gap 11 BUN 11 Creatinine 0.93 Estim Creat Clear Calc 149.22 Est GFR (MDRD) Non-Af 110 BUN/Creatinine Ratio 12.0 Glucose 90 Calcium 9.6 Total Bilirubin 0.44 AST 26 ALT 33 Alkaline Phosphatase 64 Total Protein 7.3 Albumin 4.5 Globulin 2.8 Albumin/Globulin Ratio 1.6 Lipase 27 Blood Type AB POSITIVE Antibody Screen NEGATIVE Radiography Diagnostic Testing: Clinical Impression(s) from Imaging Studies Abdomen/Pelvis CTA 01/31/25 17:57 IMPRESSION: Normal CT angiogram of the abdomen and pelvis. Reading Location: [id number] Discharge Plan Triage Chief Complaint: GI Bleed ED Provider: Shay Hdez Dx/Rx/DC Orders Clinical Impression: Acute GI bleeding, Gastric ulcer Instructions: GI Bleeding Causes and Tests, ED Gastritis Ulcer No Abx Prescriptions: New omeprazole 40 mg capsule,delayed release(DR/EC) 40 mg PO BID Qty: 60 0RF No Action haloperidol 5 mg tablet 5 mg PO BID PRN (Reason: agitation, nausea) Qty: 60 0RF pantoprazole 40 mg tablet,delayed release (DR/EC) 40 mg PO DAILY Qty: 30 0RF benztropine 1 mg tablet 1 mg PO TID Qty: 6 0RF Primary Care Provider: [facility] Referrals: Stu Leger MD [Med Staff - Active Staff] - Keep Glo appointment [facility] [Primary Care Provider] - Activity Restrictions/Additional Instructions: Hemoglobin 15. CT angiogram negative. Discussed with Dr. Warren. Hold your pantoprazole. Use omeprazole twice a day. Continue your Carafate 4 times a day. Keep your follow-up for scopes in 5 days. If you develop increasing bright red blood per rectum with clots, return to the ED for reevaluation. Print Language: Bulgarian Disposition Disposition: Home, Self Care Discharge Date/Time: 01/31/25 19:58
[2025-01-31] MEDS: Ondansetron 4 MG/2 ML Vial IV (17:49)
[2025-01-31] MEDS: 0.9% Normal Saline (1000mL) 1,000 ML 999 ML IV (17:49)
[2025-01-31 17:53] VITALS: BMI 29.9
--- NOTE | 2025-01-31 17:57 | CT_ITS ---
PROCEDURE: CTA ABD/PELVIS W/WO CONTRAST 01/31/2025 REASON FOR EXAM: GI BLEED TECHNIQUE: CTA imaging of the abdomen and pelvis with intravenous contrast. Multiplanar and multisequence images were obtained. 3D post processing, 3D reconstructions, Maximum intensity projection (MIPs) Volume rendering and Shaded surface rendering was provided. One or more dose reduction techniques were used (e.g., Automated exposure control, adjustment of the mA and/or kV according to patient size, use of iterative reconstruction technique). FINDINGS: Aorta: Abdominal aorta is normal in size. No significant atherosclerotic plaque. No evidence of aneurysm or dissection. Iliac Arteries: Iliac arteries are normal in size with no significant plaque or stenosis. Celiac: Normal. SMA: Normal. SANGEETA : Normal. Right Renal: Single right renal artery without renal artery stenosis. Left Renal: 2 left renal arteries without renal artery stenosis. Other Findings: CT/CTA Abd/Pelvis W/WO Contrast IMPRESSION: Normal CT angiogram of the abdomen and pelvis. Reading Location: [id number]
[2025-01-31 18:00] LABS: Absolute Lymphocyte Count 2.02 X10^3/uL (0.83-4.51); Absolute Neutrophil Count 5.5 X10^3/uL (2.0-7.7); Basophil# 0.05 X10^3/uL; Basophil% 0.6 % (0-1); Eosinophil# 0.25 X10^3/uL; Eosinophils% 2.9 % (0-5); Hemoglobin 15.5 g/dL (13.0-16.5); Lymphocyte # 2.02 X10^3/ul (0.83-4.51); Lymphocyte % 23.4 % (19-41); Mean Corpuscular Hgb 32.1 pg (27.0-32.0); Mean Platelet Vol. 11.1 fl (6.2-12.0); Monocyte# 0.75 X10^3/uL; Monocyte% 8.7 % (0-10); NRBC Flagged by Analyzer 0 % (0-5); Neutrophil # 5.52 X10^3/uL (2.7-7.7); Neutrophil % 63.8 % (47-70); Platelet Count 204 K/mm3 (150-450); RBC Distribution Width CV 12.7 % (11.6-14.6); RBC Distribution Width SD 41.1 fl (35.1-43.9); Red Blood Count 4.83 M/mm3 (4.6-6.2); White Blood Count 8.6 K/mm3 (4.4-11.0)
[2025-01-31 18:24] LABS: Prothrombin Time (Protime)PT. 13.1 SECONDS (11.7-14.9)
[2025-01-31 18:25] LABS: Partial Thromboplast Time 25.9 Seconds (24.1-36.2)
[2025-01-31 18:38] LABS: ALB/GLOB Ratio 1.6 RATIO (0.9-2.4); AST(SGOT) 26 U/L (<=37); Alanine Aminotransfer ALT/SGPT 33 U/L (<=46); Albumin, Serum 4.5 g/dL (3.5-5.0); Alkaline Phosphatase 64 U/L (40-129); Anion Gap 11 (5-15); BUN 11 mg/dL (4-19); Calcium,Total 9.6 mg/dL (7.6-11.0); Carbon Dioxide 27.3 mmol/L (21.0-32.0); Chloride 102 mmol/L (98-108); Creatinine, Serum 0.93 mg/dL (0.70-1.20); EST Glomerular Filtration Rate 110 (>60); Estimated Creatinine Clearance 149.22 ml/min (50-250); Globulin 2.8 g/dL (2.2-4.2); Glucose 90 mg/dL (70-99); Lipase 27 U/L (13-75); Potassium 3.6 mmol/L (3.3-5.1); Protein, Total 7.3 g/dL (5.9-8.4); Sodium Level 140 mmol/L (133-145); Total Bilirubin 0.44 mg/dL (0.00-1.30)
[2025-01-31] MEDS: PANTOPRAZOLE SODIUM IV BOLUS (18:40)
[2025-01-31] MEDS: NORMAL SALINE 0.9% IV BOLUS (18:40)
[2025-01-31 18:54] VITALS: BP 135/80; PULSE 57
[2025-01-31 19:31] VITALS: BP 142/79
[2025-01-31 19:48] VITALS: BP 135/80; PULSE 57; RESP 18; TEMP 36.3; O2SAT 98
== END 2025-01-31 19:58 | disposition home or self-care (01) ==
PROVIDERS: Emergency Provider Emergency Medicine; Visit Provider Emergency Medicine
DX: K25.0 Acute gastric ulcer with hemorrhage (principal)
CPT/HCPCS: 74174; 80053; 82274; 83690; 85025; 85610; 85730; 86850; 86900; 86901; 96365; 96375; 96376; 99283; Q9967; J2405

== ENCOUNTER 2025-02-14 05:51 | Day surgery (SDC) | payer MEDICAID, SELFPAY ==
--- NOTE | 2025-02-12 10:12 | PAT.ANE_ITS ---
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 When Was Last Pacemaker Check QUESTION #4 FULL TEXT: You/Your Family Experience fever (hyperthermia) with Anesthesia Last Oral Intake Last Oral intake: Last Oral Intake NPO since Meds taken in AM with sips of water? 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 Female No 02/12/25 09:54 HX of Motion Sickness No 02/12/25 09:54 HX of N/V After Surgery No 02/12/25 09:54 Non-Smoker Yes 02/12/25 09:54 Duration of Surgery greater No 02/12/25 09:54 than 60 minutes Number of Risk Factors 1 02/12/25 09:54 PONV Score Low Risk 02/12/25 09:54 Height & Weight Height & Weight: Anesthesia: Height & Weight Height 6 ft 3 in 02/05/25 09:38 Respiratory Assessment Respiratory Assessment - arc welding machine operator: Respiratory Tract Infection Hx - 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 Has anyone observed you stop No 02/12/25 09:54 breathing during sleep? STOP Results Negative 02/12/25 09:54 QUESTION #5 FULL TEXT : Do you snore loudly (louder than talking or can be heard through closed doors)? 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 Specify any problems Hx of Preganancy in last 3 N/A 02/12/25 09:54 Months Nurse Filling Out Transfusion VCHRISTIN 02/12/25 09:54 & Questions: Date: 02/12/25 02/12/25 09:54 Time: 09:55 02/12/25 09:54 Patient unable to answer at this time (ie. 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 Hx Now Gestational Age (in weeks): EDC: Hx Hx Para Hx Section SAB PFSH Medical History (Updated 02/12/25 @ 09:54 by Maryuri Garzon) Wears glasses Arthritis Back pain Injury of back Migraine headache Gastric reflux Former smoker Shortness of breath on exertion GERD (gastroesophageal reflux disease) Mikey blood in stool Abdominal pain Home Medications ?Medication ?Instructions ?Recorded ?Last Taken ?Type haloperidol 5 mg tablet 5 mg PO BID PRN agitation, n ausea 12/16/24 Unknown Rx #60 tabs sucralfate 1 gram tablet 1 g PO 4X/DAY 02/05/25 Unkno wn History pantoprazole 40 mg tablet,delayed 40 mg PO DAILY 02/12 Unknown History release Allergy/AdvReac Type Severity Reaction Status Date / Time piperacillin (From Zosyn) AdvReac Rash Verified 02/12/25 09:48 tazobactam (From Zosyn) AdvReac Rash Verified 02/12/25 09:48 Family History no significant family his Surgical History Hx of tympanostomy tubes History of appendectomy Social History Smoking Status: Former smoker substance use type: does not use Audit: Pertinent Findings Pertinent Findings EKG Perinent findings: 04/2024: Sinus bradycardia with sinus arrhythmia Recommendation Anesthesia Recommendation Anesthesia recommendation: OPTIMIZED for anesthesia
[2025-02-14] VITALS (9 sets, daily range): BP systolic 112–138; BP diastolic 71–87; PULSE 55–82; RESP 16–18; TEMP 36.1–36.6; O2SAT 64–99; BMI 30.4
[2025-02-14] MEDS: Lactated Ringers 1,000 ML 15 ML IV (06:23)
--- NOTE | 2025-02-14 06:51 | PCM.HP.BLA ---
History and Physical Date of Admission: 02/14/25 Intake Vital Signs 12/20/2507:28 02/01/2516:54 02/05/2509:38 Height 6 ft 3 in 6 ft 3 in 6 ft 3 in Weight: 239 lb 2 oz BMI 29.9 BP 110/70 Blood Pressure Location Lt brachial Position Sitting Respiration 17 Pulse 63 Pulse Source Monitor Temp 97.3 F L Temp Source Temporal Pulse Oximetry (%) 99 Oxygen Delivery Method room air Intake Visit Reasons: Esophagogastroduodenoscopy Chief Complaint: EGD Accompanied by: Is patient in pain?: Yes Allergies piperacillin (From Zosyn) Adverse Reaction (Verified 02/05/25 09:39) Rashtazobactam (From Zosyn) Adverse Reaction (Verified 02/05/25 09:39) Rash Medications ?Medication ?Instructions ?Recorded ?Confirmed ?Type haloperidol 5 mg tablet 5 mg PO BID PRN agitation, nausea 12/16/24 12/16/24 Rx #60 tabs benztropine 1 mg tablet 1 mg PO TID #6 tabs 12/19/24 Rx sucralfate 1 gram tablet 1 g PO 4X/DAY 02/05/25 02/05/25 History [facility] Medical History (Updated 02/05/25 @ 09:38 by Armida Martinez LPN) GERD (gastroesophageal reflux disease) Mikey blood in stool Abdominal pain Surgical History Hx of tympanostomy tubes History of appendectomy Family History no significant family his Social History Smoking Status: Former smoker substance use type: does not use HPI HPI HPI: Patient is a 34-year-old male with vomiting and abdominal pain. He has been vomiting daily for a year. He also reports that he has been having blood in his stool which is dark. He also reports that he has been having lower abdominal pain. He reports that he has epigastric pain and blood in his vomit as well. He was recently started on Carafate and a PPI. ROS General General: Yes fatigue; No weight change, appetite, colon cancer, breast cancer or weakness HEENT HEENT: Yes difficulty swallowing; No eye injury, eye surgery, swollen glands or hoarseness Endo Endocrine: No thyroid disease, diabetes mellitus, thyroid cancer, Hair loss, heat intolerance or cold intolerance Skin Skin: No rash or changing moles Musc Musculoskeletal: Yes back problems and arthritis; No rheumatoid arthritis, gout or joint pain Cardio Cardiovascular: No murmur, pacemaker, heart disease, atrial fibrillation, high blood pressure, heart attack, heart stent, palpitations, shortness of breath with exertion or chest pain Psych Psychiatric: Yes depression and anxiety; No hearing voices Resp Respiratory: Yes shortness of breath, No sleep apnea, Yes cough, No COPD, No asthma, No emphysema and No wheezing Gastro Gastrointestinal: Yes abdominal pain, Yes nausea or vomiting, Yes diarrhea, Yes constipation, Yes blood in stool, Yes acid reflux, No hemorrhoids, Yes ulcers, No gallbladder problem and Yes black,tarry stools Gabriel Hematologic: No blood thinners, No blood disorders, No bleeding, No anemia and No blood clots Neuro Neurologic: No numbness, No tingling and No weakness Exam Const General: cooperative Orientation: alert and oriented x3 HENMT Head: normal to inspection Neck Neck: normal visual inspection and full ROM Chest Chest palpation & inspection: normal inspection of the chest Resp Effort & Inspection: normal respiratory effort Auscultation: clear to auscultation bilaterally Cardio Rate: regular rate Rhythm: regular rhythm GI Inspection: non-distended Palpation: soft and nontender Skin General: no rashes or lesions noted Neuro General: patient alert and patient oriented x3 Extrem General: full ROM Psych Appearance: grossly normal Mental Status: mental status grossly normal Assessment and Plan Assessment and Plan (1) GERD (gastroesophageal reflux disease): Status: Acute (2) Mikey blood in stool: Status: Acute Orders: Orders Colonoscopy Today EGD Today Plan The patient has vomiting daily for a year. He reports abdominal pain as well as diarrhea and blood in the stool and blood in the vomit. I discussed performing EGD and colonoscopy to evaluate. I explained endoscopy in detail to the patient. I explained the risks including but not limited to stroke or heart attack with anesthesia, perforation of the GI tract, bleeding, infection. I explained that any of these could necessitate further emergency surgery. The patient understands and all questions were answered sufficiently. The patient wishes to proceed with procedure. Stu Leger MD Pager: [facility] [address] [place] [address], [address] [place] [address] Office: I have seen and examined the patient and there are no changes.
--- NOTE | 2025-02-14 07:30 | EGD_PTH ---
PATIENT: ANDRA CHAVEZ LOC: EN U#:[id number] AGE/SX: 34/M ROOM: RE02/14/[address]: Dr. Stu Leger MD : 1990 BED: DIS: 02/14/2025 SPEC #: [id number] RECD: 02/14/25 09:11 STATUS: GENEVIEVE SUNG #: [id number] JOVITA: 02/14/25 07:[address]: Stu Leger DEPT: SURGICAL PATHOLOGY RECD BY: Onesimo Vásquez ENTERED: 02/14/25 10:13 SP TYPE: EGD BIOPSY OT DR: [facility] Tissues: A - Gastric mucous membrane B - Rectum, NOS Procedures: Immunohistochemical Stains Surgery Specimen Level IV HEADER OPERATION: Colonoscopy with biopsy, EGD with biopsy and clip application PRE-OP DIAGNOSIS: Vomiting, blood in stool TISSUE SUBMITTED: A- Gastric antrum biopsy, B- Rectum biopsy MICROSCOPIC DIAGNOSIS A. Stomach, gastric antrum, biopsy: * Antral mucosa with chronic active inflammation with focal surface erosion and reactive changes * No morphologic evidence of Helicobacter pylori organisms on H&E or immunostained sections B. Rectum, biopsy: * Colonic mucosa with no pathologic change MICROSCOPIC DESCRIPTION Slides are reviewed. GROSS DESCRIPTION A. Received in formalin in a container labeled with the patient's name, date of , and gastric antrum for H. pylori and path is a 0.4 x 0.3 x 0.3 cm fragment of min-pink mucosal tissue. Submitted in toto in A1. B. Received in formalin in a container labeled with the patient's name, date of , and rectum biopsy are 2 min-pink fragments of mucosal tissue measuring 0.3 x 0.3 x 0.3 cm and 0.5 x 0.2 x 0.2 cm. Submitted in toto in B1. [facility] 02-14-2025 CPT:[id number]
--- NOTE | 2025-02-14 07:36 | PCM.PRE.AN2 ---
ASA Classification* ASA Classification ASA Classification: 2 Assessment & Plan Anesthesia* Anesthesia Assessment Anesthesia Assessment: Discussed sedation and/or anesthesia options, risks, benefits, and alternatives with patient/parents/legal guardian/POA. Questions invited. The patient/parents/legal guardian/POA seems to understand and agrees to proceed with anesthesia plan. Reviewed the physical assessment, medical history, allergy history and patient home medications list prior to surgery/procedure/anesthetic and documented any changes. Performed airway and anesthesia risk assessments. Anesthesia Type Anesthesia Type: MAC History Source History Obtained from:: Patient and Chart Anesthesia Focused Assessment* Temperature: 97.8 F Pulse Rate: 62 Blood Pressure: 138/87 Respiratory Rate: 18 Pulse Ox: 99 Oxygen Delivery Method: Room Air Airway Assessment Mouth opens: >3 cm Mallampati Score: I Teeth Condition: Intact Focused Labs Anesthesia Preop lab: CBC WBC 8.6 K/mm3 (4.4-11.0) 01/31/25 17:48 01/31/25 RBC 4.83 M/mm3 (4.6-6.2) 01/31/25 17:48 01/31/25 Hgb 15.5 g/dL (13.0-16.5) 01/31/25 17:48 01/31/25 Hct 43.0 % (40-54) 01/31/25 17:48 01/31/25 Plt Count 204 K/mm3 (150-450) 01/31/25 17:48 01/31/25 CHEMISTRY Potassium 3.6 mmol/L (3.3-5.1) 01/31/25 17:48 01/31/25 Sodium 140 mmol/L (133-145) 01/31/25 17:48 01/31/25 BUN 11 mg/dL (4-19) 01/31/25 17:48 01/31/25 Creatinine 0.93 mg/dL (0.70-1.20) 01/31/25 17:48 01/31/25 Glucose 90 mg/dL (70-99) 01/31/25 17:48 01/31/25 COAG PT 13.1 SECONDS (11.7-14.9) 01/31/25 17:48 01/31/25 Pre-Assessment Diagnosis/Proposed Procedure Planned Operative Procedure(s): COLONOSCOPY/EGD Anesthesia History 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 When Was Last Pacemaker Check QUESTION #4 FULL TEXT: You/Your Family Experience fever (hyperthermia) with Anesthesia Last Oral Intake Last Oral intake: Last Oral Intake NPO since 21:30 02/14/25 06:19 Meds taken in AM with sips of water? 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 Female No 02/12/25 09:54 HX of Motion Sickness No 02/12/25 09:54 HX of N/V After Surgery No 02/12/25 09:54 Non-Smoker Yes 02/12/25 09:54 Duration of Surgery greater No 02/12/25 09:54 than 60 minutes Number of Risk Factors 1 02/12/25 09:54 PONV Score Low Risk 02/12/25 09:54 Height & Weight Height & Weight: Anesthesia: Height & Weight Height 6 ft 2 in 02/14/25 06:19 Weight: 107.6 kg 02/14/25 06:19 Body Mass Index (BMI) 30.4 02/14/25 06:19 Respiratory Assessment 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 Has anyone observed you stop No 02/12/25 09:54 breathing during sleep? STOP Results Negative 02/12/25 09:54 QUESTION #5 FULL TEXT : Do you snore loudly (louder than talking or can be heard through closed doors)? 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 Specify any problems Hx of Preganancy in last 3 N/A 02/12/25 09:54 Months Nurse Filling Out Transfusion VCHRISTIN 02/12/25 09:54 & Questions: Date: 02/12/25 02/12/25 09:54 Time: 09:55 02/12/25 09:54 Patient unable to answer at this time (ie. 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Last Taken ?Type haloperidol 5 mg tablet 5 mg PO BID PRN agitation, nausea 12/16/24 Unknown Rx #60 tabs sucralfate 1 gram tablet 1 g PO 4X/DAY 02/05/25 Unknown History pantoprazole 40 mg tablet,delayed 40 mg PO DAILY 02/12/25 Unknown History release Allergy/AdvReac Type Severity Reaction Status Date / Time piperacillin (From Zosyn) AdvReac Rash Verified 02/14/25 06:19 tazobactam (From Zosyn) AdvReac Rash Verified 02/14/25 06:19 Surgical History Hx of tympanostomy tubes History of appendectomy Social History Smoking Status: Former smoker substance use type: does not use Review of Systems (Anesthesia) ROS Narrative System reviewed and no additional complaints, except as documented. Physical Exam Const alert and oriented x3 HEENT dentition normal Neck full ROM Resp normal respiratory effort
--- NOTE | 2025-02-14 08:03 | OP.CCLET_ITS ---
02/14/2025 Kaela Back [facility] Re : Upper GI endoscopy [facility] This procedure was performed on Friday, February 14, 2025. My impressions and recommendations are as follows: Impressions : - Non-bleeding gastric ulcer with no stigmata of bleeding. Biopsied. Clip was placed. - Normal esophagus. - Normal examined duodenum. Recommendations : - Discharge patient to home. - Resume previous diet. - Continue present medications. - Await pathology results. My findings are described in the full procedure note, which is enclosed. If I can be of further assistance, please feel free to contact me at Doctor phone number(s): , Work: . Sincerely, Stu Leger MD 02/14/2025 8:03:27 AM This report has been signed electronically.
--- NOTE | 2025-02-14 08:03 | OP.EGD_ITS ---
Patient Name: Ángel Olivares Procedure Date: 02/14/2025 7:39 AM Date of : 1990 Age: 34 Procedure: Upper GI endoscopy Indications: Epigastric abdominal pain, Persistent vomiting Providers: Stu Leger MD Referring MD: Kaela Back [facility] Medicines: Propofol per Anesthesia Patient Profile: This is a 34 year old male. Refer to note in patient chart for documentation of history and physical. Complications: No immediate complications. Estimated blood loss: Minimal. Procedure: Pre-Anesthesia Assessment: - Prior to the procedure, a History and Physical was performed, and patient medications and allergies were reviewed. The patient's tolerance of previous anesthesia was also reviewed. The risks and benefits of the procedure and the sedation options and risks were discussed with the patient. All questions were answered, and informed consent was obtained. Prior Anticoagulants: The patient has taken no anticoagulant or antiplatelet agents. After reviewing the risks and benefits, the patient was deemed in satisfactory condition to undergo the procedure. After obtaining informed consent, the endoscope was passed under direct vision. Throughout the procedure, the patient's blood pressure, pulse, and oxygen saturations were monitored continuously. The Endoscope was introduced through the mouth, and advanced to the second part of duodenum. The upper GI endoscopy was accomplished without difficulty. The patient tolerated the procedure well. Scope In: 7:46:50 AM Scope Out: 7:50:54 AM Total Procedure Duration Time 0 hours 4 minutes 4 seconds Findings: One non-bleeding superficial gastric ulcer with no stigmata of bleeding was found in the prepyloric region of the stomach. Biopsies were taken with a cold forceps for Helicobacter pylori testing. To prevent bleeding after the biopsy, one hemostatic clip was successfully placed. There was no bleeding at the end of the procedure. The esophagus was normal. The examined duodenum was normal. Impression: - Non-bleeding gastric ulcer with no stigmata of bleeding. Biopsied. Clip was placed. - Normal esophagus. - Normal examined duodenum. Recommendation: - Discharge patient to home. - Resume previous diet. - Continue present medications. - Await pathology results. Procedure Code(s): --- Professional --- 73686, Esophagogastroduodenoscopy, flexible, transoral; with biopsy, single or multiple Diagnosis Code(s): --- Professional --- K25.9, Gastric ulcer, unspecified as acute or chronic, without hemorrhage or perforation R10.13, Epigastric pain R11.15, Cyclical vomiting syndrome unrelated to migraine CPT copyright 2021 [employer]. All rights reserved. The codes documented in this report are preliminary and upon crts review may be revised to meet current compliance requirements. Stu Leger MD 02/14/2025 8:03:27 AM This report has been signed electronically. Number of Addenda: 0 Note Initiated On: 02/14/2025 7:39 AM
--- NOTE | 2025-02-14 08:05 | PCM.POST.ANE ---
Anesthesia: Postop Eval I Current Vital Signs Temperature: 97.0 F Pulse Rate: 64 Blood Pressure: 112/71 Respiratory Rate: 16 Pulse Ox: 64 Oxygen Delivery Method: Room Air Assessment Airway patent: Yes Spontaneous unlabored respirations: Yes Mental status: Awake and Calm nausea: No Vomiting: No Anesthesia Complication: No Fluid Hydration Crystalloid volume administer (ml): 300 Total IV fluid infused: 300 Progress Note Anesthesia document: Postop Eval 1 completed: Yes
--- NOTE | 2025-02-14 08:06 | OP.CCLET_ITS ---
02/14/2025 Kaela Back [facility] Re : [facility] This procedure was performed on Friday, February 14, 2025. My impressions and recommendations are as follows: Impressions : - Preparation of the colon was poor. - The entire examined colon is normal on direct and retroflexion views. - The examination was otherwise normal on direct and retroflexion views. - Biopsies were taken with a cold forceps from the sigmoid colon and rectum for evaluation of microscopic colitis. Recommendations : - Discharge patient to home. - Resume previous diet. - Continue present medications. - Await pathology results. - Repeat colonoscopy in 10 years for screening purposes. My findings are described in the full procedure note, which is enclosed. If I can be of further assistance, please feel free to contact me at Doctor phone number(s): , Work: . Sincerely, Stu Leger MD 02/14/2025 8:05:25 AM This report has been signed electronically.
--- NOTE | 2025-02-14 08:06 | OP.COLON_ITS ---
Patient Name: Ángel Olivares Procedure Date: 02/14/2025 7:51 AM Date of : 1990 Age: 34 Procedure: Colonoscopy Indications: Chronic diarrhea Providers: Stu Leger MD Referring MD: Kaela Back [facility] Medicines: Propofol per Anesthesia Patient Profile: This is a 34 year old male. Refer to note in patient chart for documentation of history and physical. Last Colonoscopy: none. The patient's first colonoscopy is today. Complications: No immediate complications. Estimated blood loss: Minimal. Procedure: Pre-Anesthesia Assessment: - Prior to the procedure, a History and Physical was performed, and patient medications and allergies were reviewed. The patient's tolerance of previous anesthesia was also reviewed. The risks and benefits of the procedure and the sedation options and risks were discussed with the patient. All questions were answered, and informed consent was obtained. Prior Anticoagulants: The patient has taken no anticoagulant or antiplatelet agents. After reviewing the risks and benefits, the patient was deemed in satisfactory condition to undergo the procedure. After I obtained informed consent, the scope was passed under direct vision. Throughout the procedure, the patient's blood pressure, pulse, and oxygen saturations were monitored continuously. The Colonoscope was introduced through the anus and advanced to the cecum, identified by appendiceal orifice and ileocecal valve. The colonoscopy was performed without difficulty. The patient tolerated the procedure well. The quality of the bowel preparation was poor. The ileocecal valve, appendiceal orifice, and rectum were photographed. Scope In: 7:52:27 AM Scope Withdrawal Time 0 hours 2 minutes 58 seconds Scope Out: 7:58:39 AM Total Procedure Duration Time 0 hours 6 minutes 12 seconds Findings: The entire examined colon appeared normal on direct and retroflexion views. Biopsies for histology were taken with a cold forceps from the sigmoid colon and rectum for evaluation of microscopic colitis. The exam was otherwise without abnormality on direct and retroflexion views. Impression: - Preparation of the colon was poor. - The entire examined colon is normal on direct and retroflexion views. - The examination was otherwise normal on direct and retroflexion views. - Biopsies were taken with a cold forceps from the sigmoid colon and rectum for evaluation of microscopic colitis. Recommendation: - Discharge patient to home. - Resume previous diet. - Continue present medications. - Await pathology results. - Repeat colonoscopy in 10 years for screening purposes. Procedure Code(s): --- Professional --- 88654, Colonoscopy, flexible; with biopsy, single or multiple Diagnosis Code(s): --- Professional --- K52.9, Noninfective gastroenteritis and colitis, unspecified CPT copyright 2021 [employer]. All rights reserved. The codes documented in this report are preliminary and upon golf teacher review may be revised to meet current compliance requirements. Stu Leger MD 02/14/2025 8:05:25 AM This report has been signed electronically. Number of Addenda: 0 Note Initiated On: 02/14/2025 7:51 AM
--- NOTE | 2025-02-14 09:51 | POSTOPAN2_ITS ---
Anesthesia Postop Eval I Sum Postop Eval Completion status Anesthesia document: Postop Eval 1 completed: Yes Anesthesia Postop Eval I Summary Anesthesia Postop Eval I Summary: Anesthesia Postop Eval I: Assessment Summary Airway patent Yes 02/14/25 08:06 AUTOMATIC MACHINES SUPERVISOR.SOBR Spontaneous unlabored Yes 02/14/25 08:06 AUTOMATIC MACHINES SUPERVISOR.SOBR respirations Mental status Awake,Calm 02/14/25 08:06 AUTOMATIC MACHINES SUPERVISOR.SOBR nausea No 02/14/25 08:06 AUTOMATIC MACHINES SUPERVISOR.SOBR Vomiting No 02/14/25 08:06 AUTOMATIC MACHINES SUPERVISOR.SOBR Anesthesia Postop Eval I: Fluid Summary Crystalloid volume administer 300 02/14/25 08:06 AUTOMATIC MACHINES SUPERVISOR.SOBR (ml) Colloids volume administered ( ml) Blood Product volume administered (ml) Total IV fluid infused 300 02/14/25 08:06 AUTOMATIC MACHINES SUPERVISOR.SOBR Anesthesia Postop Eval I: Summary Notes Anesthesia Complication No 02/14/25 08:06 AUTOMATIC MACHINES SUPERVISOR.SOBR Anesthesia Complication Comment: Post-operative progress note Anesthesia: Postop Eval II Evaluation Mental status: Awake and Calm Pain Level: 2 nausea: No Vomiting: No Complications Anesthesia Complication: No
--- NOTE | 2025-02-14 09:51 | PCM.POSTANE2 ---
Anesthesia Postop Eval I Sum Postop Eval Completion status Anesthesia document: Postop Eval 1 completed: Yes Anesthesia Postop Eval I Summary Anesthesia Postop Eval I Summary: Anesthesia Postop Eval I: Assessment Summary Airway patent Yes 02/14/25 08:06 PROJECT SYSTEMS ENGINEER.SOBR Spontaneous unlabored Yes 02/14/25 08:06 PROJECT SYSTEMS ENGINEER.SOBR respirations Mental status Awake,Calm 02/14/25 08:06 PROJECT SYSTEMS ENGINEER.SOBR nausea No 02/14/25 08:06 PROJECT SYSTEMS ENGINEER.SOBR Vomiting No 02/14/25 08:06 PROJECT SYSTEMS ENGINEER.SOBR Anesthesia Postop Eval I: Fluid Summary Crystalloid volume administer 300 02/14/25 08:06 PROJECT SYSTEMS ENGINEER.SOBR (ml) Colloids volume administered ( ml) Blood Product volume administered (ml) Total IV fluid infused 300 02/14/25 08:06 PROJECT SYSTEMS ENGINEER.SOBR Anesthesia Postop Eval I: Summary Notes Anesthesia Complication No 02/14/25 08:06 PROJECT SYSTEMS ENGINEER.SOBR Anesthesia Complication Comment: Post-operative progress note Anesthesia: Postop Eval II Evaluation Mental status: Awake and Calm Pain Level: 2 nausea: No Vomiting: No Complications Anesthesia Complication: No
== END 2025-02-14 08:52 | disposition home or self-care (01) ==
LOC: EN 05:51 → AC 05:52
PROVIDERS: Visit Provider Surgery
PROC: 0DJD8ZZ Inspection of Lower Intestinal Tract, Via Natural or Artificial Opening Endoscopic (ICD-10-PCS; CPT 45378; principal; 2025-02-14 07:25)
DX: K21.9 Gastro-esophageal reflux disease without esophagitis (principal); K25.9 Gastric ulcer, unspecified as acute or chronic, without hemorrhage or perforation; G43.A1 Cyclical vomiting, in migraine, intractable; Z79.899 Other long term (current) drug therapy; Z87.891 Personal history of nicotine dependence
CPT/HCPCS: 43239; 45380; 88305; 88342

== ENCOUNTER 2025-04-17 09:42 | Emergency (ER) | payer MEDICAID, SELFPAY ==
[2025-04-17 09:42] VITALS: BP 123/84; PULSE 69; RESP 14; TEMP 36.1; O2SAT 98; BMI 30.4
--- NOTE | 2025-04-17 10:07 | EDS_ITS ---
HPI History of Present Illness Chief Complaint: Abd Pain Narrative Narrative: Patient is a 34-year-old male with past medical history of GERD, ulcers who presents to the emergency department with chief complaint of nausea, vomiting, diarrhea. Patient states that he approximately 2 months ago had a procedure done where he had an ulcer that had to be clipped he states. He states that for the past few days he has been not feeling well and notes that if he lays on his left side he becomes extremely nauseous. He states that he had diarrhea and noted that this is had some bright red blood and this as well. He states that he has not followed up with a physician since his hospitalization last as he has had court issues going on that he missed his appointment with Callie. He notes that he ran out of his medication that coats his esophagus last week. Patient also noted that his significant other recently returned from [place] and notes that she was not feeling well when she returned. He states that he went to urgent care today and they advised him to come to the emergency department to be further evaluated [facility] Medical History Wears glasses Arthritis Back pain Injury of back Migraine headache Gastric reflux Former smoker Shortness of breath on exertion GERD (gastroesophageal reflux disease) Mikey blood in stool Abdominal pain Home Medications ?Medication ?Instructions ?Recorded ?Last Taken ?Type haloperidol 5 mg tablet 5 mg PO BID PRN agitation, n ausea 12/16/24 Unknown Rx #60 tabs sucralfate 1 gram tablet 1 g PO 4X/DAY 02/05/25 Unkno wn History pantoprazole 40 mg tablet,delayed 40 mg PO DAILY 02/12 Unknown History release ondansetron 4 mg disintegrating 4 mg PO Q6H PRN nausea and 04/17/25 Unknown Rx tablet vomiting #20 tabs pantoprazole 40 mg tablet,delayed 40 mg PO DAILY 30 da ys #30 tabs 04/17/25 Unknown Rx release (Protonix) Allergy/AdvReac Type Severity Reaction Status Date / Time piperacillin (From Zosyn) AdvReac Rash Verified 04/17/25 09:43 tazobactam (From Zosyn) AdvReac Rash Verified 04/17/25 09:43 Surgical History Hx of tympanostomy tubes History of appendectomy Social History Smoking Status: Current every day smoker tobacco type: cigarettes substance use type: does not use ROS ROS ED ROS Narrative Constitutional: Denies any fevers, chills, headaches Cardiovascular: Denies chest pain Respiratory: Denies shortness of breath Abdomen: Complains of nausea vomiting diarrhea and abdominal discomfort as noted above denies dark tarry stool denies coffee-ground emesis : Denies any urinary symptoms Neurological: Denies numbness, some tingling Musculoskeletal: Denies back pain Skin: Denies any rashes or lesions EXAM Physical Exam Narrative Exam Narrative: General: Patient lying in bed rest comfortably did not appear to be acute distress Head: Atraumatic, normocephalic Eyes: PERRL bilaterally, EOMI by, no conjunctival injection noted Neck: Soft, supple, trachea midline Cardiovascular: Regular rate and rhythm no murmurs gallops rubs noted Respiratory: Clear to auscultation bilaterally Abdomen: Soft, nondistended, mild diffuse tenderness to palpation no rebound or guarding on exam Extremities: +5/5 strength noted in the bilateral upper and lower extremities, radial pulses +2/4 in the bladder extremities Neurological: Patient is following commands knew he was at [facility] year is 2024 Skin: Warm, dry, tact no rashes or lesions noted Const Vital Signs: 04/17/25 09:42 Temperature 97 F L Temperature Source Temporal Pulse Rate 69 Respiratory Rate 14 Blood Pressure 123/84 H Blood Pressure Mean 97 Pulse Ox 98 Oxygen Delivery Method Room Air MDM MDM MDM Narrative Medical decision making narrative: Patient is a 34-year-old male who presented to the emergency department with a chief complaint of abdominal pain, nausea and diarrhea. On the differential diagnose includes but not limited to viral gastroenteritis, gastritis, upper GI bleed although based on his symptoms of low suspicion for this, colitis, hemorrhoids, diverticulosis, diverticulitis. Patient will be given Protonix as well as a liter of IV fluid. patient CBC reviewed showed no evidence leukocytosis white blood count was 6.2, he was 15.1, platelet count 196. Patient sodium is 139, potassium 4.4, creatinine was 0.95. Patient's AST and ALT were 28 and 26 respectively total bilirubin normal at 0.38. Patient's lipase was noted to be normal at 42. Patient's CT abdomen pelvis was reviewed and showed no acute findings. Reevaluation the patient is feeling better he like to go home at this point time. Patient was advised to take the Bentyl that was already prescribed by urgent care we will send a prescription for Zofran as well. He is advised to f ollow-up with Dr. Pollack in the outpatient setting as well as a primary care physician. I will replace him on his pantoprazole that he is supposed to be on daily as he does not have a appointment upcoming soon. He is agreeable this plan all question concerns answered he is discharged home in stable condition. He is advised to return with worsening symptoms or other concerns Lab Data Labs: Laboratory Results - last 24 hr 04/17/25 10:16 WBC 6.2 RBC 4.75 Hgb 15.1 Hct 43.2 MCV 90.9 MCH 31.8 MCHC 35.0 RDW Std Deviation 42.4 RDW Coeff of Yousif 12.7 Plt Count 196 MPV 10.5 Immature Gran % (Auto) 0.600 Neut % (Auto) 56.3 Lymph % (Auto) 27.3 [place] % (Auto) 9.2 Eos % (Auto) 6.1 H Baso % (Auto) 0.5 Absolute Neuts (auto) 3.5 Absolute Lymphs (auto) 1.70 Nucleated RBC % 0 Sodium 139 Potassium 4.4 Chloride 103 Carbon Dioxide 25.5 Anion Gap 11 BUN 13 Creatinine 0.95 Estim Creat Clear Calc 143.07 Est GFR (MDRD) Non-Af 108 BUN/Creatinine Ratio 13.3 Glucose 99 Calcium 9.5 Total Bilirubin 0.38 AST 28 ALT 26 Alkaline Phosphatase 66 Total Protein 7.2 Albumin 4.4 Globulin 2.8 Albumin/Globulin Ratio 1.6 Lipase 42 Discharge Plan Triage Chief Complaint: Abd Pain ED Provider: Dwight Roque Dx/Rx/DC Orders Clinical Impression: Nausea, Diarrhea, Viral gastroenteritis Prescriptions: New pantoprazole [Protonix] 40 mg tablet,delayed release (DR/EC) 40 mg PO DAILY 30 Days Qty: 30 2RF ondansetron 4 mg tablet,disintegrating 4 mg PO Q6H PRN (Reason: nausea and vomiting) Qty: 20 0RF No Action haloperidol 5 mg tablet 5 mg PO BID PRN (Reason: agitation, nausea) Qty: 60 0RF sucralfate 1 gram tablet 1 g PO 4X/DAY pantoprazole 40 mg tablet,delayed release (DR/EC) 40 mg PO DAILY Primary Care Provider: Juliane Miguel Referrals: Juliane Miguel, [facility] [Primary Care Provider] - Activity Restrictions/Additional Instructions: Take prescription as prescribed. Follow-up your primary care physician as well as Dr. Jaki in the outpatient setting. Return with worsening symptoms or other concerns. Your blood work did not show any acute findings and your CT today was normal. Print Language: Sinhala Disposition Disposition: Home, Self Care
[2025-04-17] MEDS: 0.9% Normal Saline (1000mL) 1,000 ML 999 ML IV (10:14)
[2025-04-17 10:35] LABS: Hematocrit 43.2 % (40-54); Hemoglobin 15.1 g/dL (13.0-16.5); Immature Granulocytes Count 0.040 X10^3/uL (0.0-0.0); Mean Corp Hgb Conc 35.0 g/dL (32-36); Mean Corpuscular Volume 90.9 fL (80-94); Mean Platelet Vol. 10.5 fl (6.2-12.0); NRBC Flagged by Analyzer 0 % (0-5); Platelet Count 196 K/mm3 (150-450); RBC Distribution Width CV 12.7 % (11.6-14.6); RBC Distribution Width SD 42.4 fl (35.1-43.9); Red Blood Count 4.75 M/mm3 (4.6-6.2); White Blood Count 6.2 K/mm3 (4.4-11.0)
[2025-04-17 10:55] LABS: AST(SGOT) 28 U/L (<=37); Alanine Aminotransfer ALT/SGPT 26 U/L (<=46); Albumin, Serum 4.4 g/dL (3.5-5.0); Alkaline Phosphatase 66 U/L (40-129); Anion Gap 11 (5-15); BUN 13 mg/dL (4-19); BUN/Creat Ratio 13.3 RATIO (10-20); Calcium,Total 9.5 mg/dL (7.6-11.0); Carbon Dioxide 25.5 mmol/L (21.0-32.0); Chloride 103 mmol/L (98-108); Estimated Creatinine Clearance 143.07 ml/min (50-250); Globulin 2.8 g/dL (2.2-4.2); Glucose 99 mg/dL (70-99); Lipase 42 U/L (13-75); Potassium 4.4 mmol/L (3.3-5.1)
--- NOTE | 2025-04-17 10:55 | CT_ITS ---
PROCEDURE: ABDOMEN/PELVIS W IV CONT ONLY 04/17/2025 REASON FOR EXAM: HISTORY OF UPPER GI BLEED WITH ULCERS TECHNIQUE: ABDOMEN/PELVIS W IV CONT ONLY Coronal and Sagittal reconstruction series were provided. CONTRAST: Isovue-300 VOLUME: 100 mL One or more dose reduction techniques were used (e.g., Automated exposure control, adjustment of the mA and/or kV according to patient size, use of iterative reconstruction technique. RADIATION DOSE SUMMARY: CTDlvol: 16.6 mGy DLP: 1210.36 mGycm COMPARISON: Prior study dated January 31, 2025. FINDINGS: Lung bases: Unremarkable Liver: Normal size. No mass. Gallbladder: Unremarkable Spleen: Normal size. Pancreas: Normal size without evidence of mass surrounding inflammation or ductal dilation. Adrenals: Unremarkable Kidneys: Normal renal sizes. No hydronephrosis. Bladder: Unremarkable Bowel: Unremarkable Appendix: Prior appendectomy. Lymph nodes: Unremarkable. Vasculature: The abdominal aorta and IVC are normal. Peritoneum / Retroperitoneum: Unremarkable Bones: Degenerative changes of the spine. Reading Location: [place] [id number]
[2025-04-17] MEDS: Pantoprazole Sodium 40 MG in 0.9% Normal Saline (100mL MB+) 100 ML 300 MG IV (11:05)
[2025-04-17 12:38] VITALS: BP 138/71; PULSE 68; RESP 18; TEMP 37.2; O2SAT 99
== END 2025-04-17 12:39 | disposition home or self-care (01) ==
PROVIDERS: Emergency Provider Emergency Medicine; PCP Nurse Practitioner Family; Visit Provider Emergency Medicine
DX: A08.4 Viral intestinal infection, unspecified (principal); F17.210 Nicotine dependence, cigarettes, uncomplicated
CPT/HCPCS: 74177; 80053; 83690; 85025; 96365; 96375; 99283; Q9967; J2405

== ENCOUNTER → 2025-04-24 | Outpatient (CLI) | payer MEDICAID, SELFPAY | END | disposition home or self-care (01) | PROVIDERS: PCP Nurse Practitioner Family; Referring Provider Physician Assistant; Visit Provider Physician Assistant | DX: K58.9 Irritable bowel syndrome, unspecified (principal); R19.7 Diarrhea, unspecified | CPT/HCPCS: 82274; 83630; 87493; 87506 ==

== ENCOUNTER → 2025-05-08 | Outpatient (CLI) | payer MEDICAID, SELFPAY ==
[2025-05-13 08:08] LABS: Calprotectin, Stool 80 ug/g (0-120)
== END | disposition home or self-care (01) ==
LOC: LABSPEC 08:53
PROVIDERS: PCP Nurse Practitioner Family; Visit Provider Family Medicine
DX: A04.72 Enterocolitis due to Clostridium difficile, not specified as recurrent (principal)
CPT/HCPCS: 83993; 87493